=== PATIENT | female | born 1950 | race Caucasian/White ===

== ENCOUNTER 2018-05-26 12:33 | Emergency (ER) | payer MEDICARE ==
[2018-05-26] MEDS ORDERED: ONDANSETRON HCL IV 4 MG/2 ML VIAL IVP ONE (12:41)
[2018-05-26] MEDS ORDERED: HYDROMORPHONE HCL 2 MG/ML VIAL IVP ONE ×2 (12:41→14:58)
[2018-05-26] MEDS ORDERED: 0.9 % SODIUM CHLORIDE 1000ML 1,000 ML IV SCH (12:45)
--- NOTE | 2018-05-26 12:48 | Emergency Department Record ---
History of Present Illness - General Chief Complaint: Fall Injury Stated Complaint: FALL INJURY Time Seen by Provider: 05/26/18 12:41 Source: Patient, EMS Mode of Arrival: EMS Limitations: No limitations - History of Present Illness Initial Comments: 68 yo female presents to ED for evaluation of right shoulder and left knee/ lower leg pain symptoms immediately following a trip and fall at home. Patient reports that she tripped on a rug at home that resulted in her fall. Patient denies numbness, tingling, or weakness to the right hand distally or to the left foot distally. Patient denies use of anticoagulation medications, and denies injury to the head or neck. MD Complaint: Fall Onset/Timin -: Minutes(s) Fall From: Standing When Fall Occurred: Just prior to arrival Fall Witnessed: Yes, by family Place Fall Occurred: Home Loss of Consciousness: None Prolonged Down Time?: No Symptoms Prior to Fall: None Location - Extremities: Left: Knee, Lower Leg, Right: Shoulder Severity: Moderate Quality: Aching Associated Symptoms: Denies - [place] Coma Scale Eye Response: (4) Open spontaneously Motor Response: (6) Obeys commands Verbal Response: (5) Oriented [place] Total: 15 - Related Data Allergies Allergy/AdvReac Type Severity Reaction Status Date / Time venom-honey bee Allergy Severe ANAPHYLAXIS Verified 05/26/18 12:45 [bee venom (honey bee)] Penicillins Allergy Intermediate HIVES Verified 05/26/18 12:45 Sulfa (Sulfonamide Allergy Intermediate RASH Verified 05/26/18 12:45 Antibiotics) propoxyphene HCl AdvReac Intermediate ALTERED Verified 05/26/18 12:45 [From Darvon] MENTAL STATUS Review of Systems Constitutional: Denies: Chills, Fever, Malaise, Night sweats Eyes: Denies: Eye discharge, Eye pain ENT: Denies: Congestion, Ear pain, Epistaxis Respiratory: Denies: Cough, Dyspnea Cardiovascular: Denies: Chest pain, Dyspnea on exertion Endocrine: Denies: Fatigue, Heat or cold intolerance Gastrointestinal: Denies: Abdominal pain, Nausea, Vomiting Genitourinary: Denies: Incontinence, Retention Musculoskeletal: Reports: Arthralgia. Denies: Back pain, Gout, Joint swelling Skin: Denies: Bruising, Change in color Neurological: Denies: Confusion, Headache, Seizure Psychiatric: Denies: Anxiety Hematological/Lymphatic: Denies: Anemia, Blood Clots Physical Exam - General General Appearance: Alert, Oriented x3, Cooperative, Moderate distress Limitations: No limitations - Head Head exam: Atraumatic, Normocephalic, Normal inspection Head exam detail: negative: Abrasion, Contusion, Dominique's sign, General tenderness, Hematoma, Laceration - Eye Eye exam: Normal appearance. negative: Conjunctival injection, Periorbital swelling, Periorbital tenderness, Scleral icterus - ENT Ear exam: negative: Auricular hematoma, Auricular trauma Nasal Exam: negative: Active bleeding, Discharge, Dried blood, Foreign body Mouth exam: negative: Drooling, Laceration, Muffled voice, Tongue elevation - Neck Neck exam: Normal inspection. negative: Meningismus, Tenderness - Respiratory Respiratory exam: Normal lung sounds bilaterally. negative: Rales, Respiratory distress, Rhonchi, Stridor - Cardiovascular Cardiovascular Exam: Regular rate, Normal rhythm, Normal heart sounds Peripheral Pulses: 3+: Radial (R), Dorsalis Pedis (L) - GI/Abdominal GI/Abdominal exam: Soft. negative: Rebound, Rigid, Tenderness - Rectal Rectal exam: Deferred - exam: Deferred - Extremities Extremities exam: Tenderness, Other (TTP to the proximal right humerus on examination, no evidence for dislocation on examination, compartments of the upper arm and forearm are soft on exmaination, strong distal radial pulse. Patient also has TTP and STS over the left knee inferiorly, STS to the left lower leg, compartments are soft, and patient has a strong DPP.). negative: Calf tenderness, Pedal edema - Back Back exam: Denies: CVA tenderness (R), CVA tenderness (L) - Neurological Neurological exam: Alert, Oriented X3 - Psychiatric Psychiatric exam: Normal affect, Normal mood - Skin Skin exam: Normal color. negative: Abrasion Type of lesion: negative: abrasion Course - Reevaluation(s) Reevaluation #1: 05/26/18 12:48 Patient was seen and examined, analgesia ordered following examination. Reevaluation #2: 05/26/18 14:07 Right shoulder: No acute fracture or dislocation Left Knee: Lateral inter-articular tibial plateau fracture Per patient choice, will initiate transfer to [facility] for orthopedic consultation. Reevaluation #3: 05/26/18 14:37 Case was discussed with Olvin Brambila, and Ryne-will accept transfer for trauma/orthopedics evaluation. Disposition Disposition: Transfer Clinical Impression: Tibial plateau fracture, left Qualifiers: Encounter type: initial encounter Fracture type: closed Qualified Code(s): S82.142A - Displaced bicondylar fracture of left tibia, initial encounter for closed fracture Shoulder dislocation Qualifiers: Encounter type: initial encounter Laterality: right Qualified Code(s): S43.004A - Unspecified dislocation of right shoulder joint, initial encounter Disposition: Acute Care Hospital Transfer Transfer To: [facility] Reason For Transfer: Orthopedic consultation Accepting Physician: Abiel Time Discussed w/Accepting Physician: 14:37 Forms: Patient Portal Access Time of Disposition: 14:37 Quality - Quality Measures Quality Measures: N/A - Blood Pressure Screening Does Patient Have Any of the Following: Active Dx of HTN Blood Pressure Classification: Hypertensive Reading Systolic Measurement: 155 Diastolic Measurement: 77 Screening for High Blood Pressure: Patient Exclusion, Hx of HTN [[id number]]
--- NOTE | 2018-05-28 10:27 | RADIOLOGY REPORT ---
EXAM: LEFT KNEE, THREE VIEWS HISTORY: ANTERIOR KNEE PAIN BELOW PATELLA POST FALL. TECHNIQUE: AP, lateral and tunnel views of the left knee were obtained. Comparison: None. Encounter: Initial. FINDINGS: There is mild osteopenia. Best seen on the AP and tunnel views is a longitudinally oriented linear lucency appearing to extend from the central aspect of the lateral tibial plateau inferiorly to the proximal metadiaphyseal junction. This is suspicious for acute fracture. There is no articular surface step-off. There is a small to moderate sized joint effusion. There is stranding of Hoffa's fat as seen on the lateral view. Mild tricompartmental degenerative changes are present. There is atherosclerotic calcification of the proximal aspect of the popliteal artery. IMPRESSION: 1. ACUTE INTRAARTICULAR FRACTURE OF THE PROXIMAL TIBIA, DESCRIBED ABOVE ASSOCIATED WITH SMALL TO MODERATE SIZED JOINT EFFUSION/HEMARTHROSIS. 2. MILD TRICOMPARTMENTAL DEGENERATIVE CHANGES. JOB NUMBER: [id number] [facility]
--- NOTE | 2018-05-28 10:39 | RADIOLOGY REPORT ---
EXAM: RIGHT SHOULDER COMPLETE HISTORY: RIGHT SHOULDER PAIN POST TRIP AND FALL. TECHNIQUE: Internal and external humerus rotation AP views of the right shoulder were obtained as well as a scapular Y-view. Comparison: None. Encounter: Initial. FINDINGS: There is diffuse osteopenia. No acute fracture, dislocation, or destructive bone lesion is seen. There are mild osteoarthritic changes of the acromioclavicular and glenohumeral joints. No focal soft tissue abnormality. IMPRESSION: DIFFUSE OSTEOPENIA. NO ACUTE FRACTURE NOR DISLOCATION. MILD DEGENERATIVE CHANGES. JOB NUMBER: [id number] [facility]
== END 2018-05-26 15:20 | disposition short-term general hospital (02) ==
LOC: ER 12:33
DX: S82.142A Displaced bicondylar fracture of left tibia, initial encounter for closed fracture (principal); S43.004A Unspecified dislocation of right shoulder joint, initial encounter; I10 Essential (primary) hypertension; W01.198A Fall on same level from slipping, tripping and stumbling with subsequent striking against other object, initial encounter; Y92.009 Unspecified place in unspecified non-institutional (private) residence as the place of occurrence of the external cause
CPT/HCPCS: 99285 ×2; 96376; 96374; 96375; 73562; 73030; J2405; J1170; J7030

== ENCOUNTER 2018-05-29 14:11 | Inpatient (IN) | payer MEDICARE ==
[2018-05-29] MEDS ORDERED: LEVALBUTEROL TARTRATE INH PRN (16:25)
[2018-05-29] MEDS ORDERED: IPRATROPIUM BR 0.02% NEB (0.5MG) INH PRN (16:27)
[2018-05-29] MEDS: IPRATROPIUM BR 0.02% NEB (0.5MG) INH SCH ×2 (18:15→23:35)
[2018-05-29] MEDS: HYDROCODONE/APAP 5/325MG TABLET PO PRN (19:42)
[2018-05-29] MEDS: ATORVASTATIN 20 MG TABLET PO SCH ×2 (21:23→21:25)
[2018-05-29] MEDS: DOCUSATE SODIUM 100 MG CAPSULE PO SCH (21:23)
[2018-05-29] MEDS: CILOSTAZOL 100 MG TABLET PO SCH (22:56)
[2018-05-30] MEDS: HYDROCODONE/APAP 5/325MG TABLET PO PRN ×3 (04:48→22:00)
[2018-05-30] MEDS: LEVOTHYROXINE SOD 112 MCG TAB PO SCH (06:40)
[2018-05-30] MEDS: PANTOPRAZOLE SODIUM 40 MG TABLET PO SCH (06:40)
[2018-05-30] MEDS ORDERED: LEVOTHYROXINE SODIUM 175 MCG TABLET PO SCH (07:00)
[2018-05-30] MEDS: BREO (FLUTICASONE/VILANTEROL) 200MCG/25MCG INHALER INH SCH (09:19)
[2018-05-30] MEDS: ENOXAPARIN 40 MG/0.4 ML SYR SQ SCH (09:43)
[2018-05-30] MEDS: HYDROCHLOROTHIAZIDE 25 MG TABLET PO SCH (09:43)
[2018-05-30] MEDS: LISINOPRIL 20 MG TABLET PO SCH (09:44)
[2018-05-30] MEDS: MELOXICAM 7.5 MG TABLET PO SCH (09:44)
[2018-05-30] MEDS: CALCIUM CARB/VITAMIN D 500MG/200IU PO SCH (09:44)
[2018-05-30] MEDS: ASPIRIN 81 MG TABEC PO SCH (09:44)
[2018-05-30] MEDS: CHOLECALCIFEROL 1,000 UNIT TABLET PO SCH (09:44)
[2018-05-30] MEDS: DOCUSATE SODIUM 100 MG CAPSULE PO SCH ×2 (09:45→22:01)
[2018-05-30] MEDS ORDERED: FISH OIL 1200 MG PO SCH (10:00)
[2018-05-30] MEDS: IPRATROPIUM BR 0.02% NEB (0.5MG) INH SCH ×2 (10:40→15:24)
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
--- NOTE | 2018-05-30 11:53 | Swing Bed Certification/Recert ---
Initial Certification Due: 05/29/18 14 Day Re-Cert Due: 06/12/18 44 Day Re-Cert Due: 07/12/18 74 Day Re-Cert Due: 08/11/18 CERTIFICATION 3 CERTIFICATION OF PATIENT ADMISSION Required at time of admission. Due: 05/29/18 I certify that SNF services are required to be given on an inpatient basis because of the above named patient's need for assisted care on a continuing basis for the condition(s) for which he/she was receiving inpatient hospital services prior to his/her transfer to the SNF. The patient's current needs for skilled care includes: [physical therapy, occupational therapy, assistance with transfers, assistance with ADL's, oxygen supplementation, pain control] Dana Smith, N.P. 05/30/18
[2018-05-30] MEDS: IPRATROPIUM BROMIDE PUFF SCH ×2 (17:17→21:46)
[2018-05-30] MEDS ORDERED: LEVALBUTEROL TARTRATE INH SCH (18:00)
[2018-05-30] MEDS: XOPENEX PUFF SCH (21:46)
[2018-05-30] MEDS: ATORVASTATIN 20 MG TABLET PO SCH (22:00)
[2018-05-31] MEDS: HYDROCODONE/APAP 5/325MG TABLET PO PRN ×3 (03:53→21:24)
[2018-05-31 06:51] LABS: BASO % 0.2 % (0-6); EOS % 3.9 % (0-6); HEMATOCRIT 30.3 % (35.0-47.0); HEMOGLOBIN 9.4 gm/dl (11.6-16.0); LYMPH % 14.2 % (16-45); MEAN CELL VOLUME 92.7 fl (81-97); MEAN CORPUSCULAR HEMOGLOBIN 28.7 pg (27-33); MEAN PLATELET VOLUME 9.6 fl (7.4-10.4); MONO % 9.7 % (0-9); PLATELET COUNT 243 K/uL (130-400); RED BLOOD COUNT 3.27 M/uL (3.80-5.40); RED CELL DISTRIBUTION WIDTH 12.2 % (11.5-14.5)
[2018-05-31 07:10] LABS: BLOOD UREA NITROGEN 26 mg/dL (8-23); CREATININE 0.9 mg/dL (0.5-0.9); EST GLOMERULAR FILTRATION RATE > 60 mL/min; GLUCOSE,RANDOM 103 mg/dL (74-109)
[2018-05-31] MEDS: LEVOTHYROXINE SOD 112 MCG TAB PO SCH (07:35)
[2018-05-31] MEDS: PANTOPRAZOLE SODIUM 40 MG TABLET PO SCH (07:35)
[2018-05-31] MEDS ORDERED: POLYETHYLENE GLY 17 GM PACKET PO PRN (09:21)
[2018-05-31] MEDS: ASPIRIN 81 MG TABEC PO SCH (09:34)
[2018-05-31] MEDS: BREO (FLUTICASONE/VILANTEROL) 200MCG/25MCG INHALER INH SCH (09:34)
[2018-05-31] MEDS: HYDROCHLOROTHIAZIDE 25 MG TABLET PO SCH (09:34)
[2018-05-31] MEDS: ACETAMINOPHEN 500 MG TABLET PO PRN ×2 (09:34→20:07)
[2018-05-31] MEDS: ENOXAPARIN 40 MG/0.4 ML SYR SQ SCH (09:34)
[2018-05-31] MEDS: CALCIUM CARB/VITAMIN D 500MG/200IU PO SCH ×2 (09:34→21:21)
[2018-05-31] MEDS: CHOLECALCIFEROL 1,000 UNIT TABLET PO SCH (09:34)
[2018-05-31] MEDS: MELOXICAM 7.5 MG TABLET PO SCH (09:35)
[2018-05-31] MEDS: DOCUSATE SODIUM 100 MG CAPSULE PO SCH ×2 (09:35→21:21)
[2018-05-31] MEDS: LISINOPRIL 20 MG TABLET PO SCH (09:36)
[2018-05-31] MEDS: IPRATROPIUM BROMIDE PUFF SCH ×4 (09:41→21:49)
[2018-05-31] MEDS: XOPENEX PUFF SCH ×4 (09:41→21:49)
[2018-05-31] MEDS ORDERED: CYCLOBENZAPRINE 10MG TABLET PO PRN (10:30)
[2018-05-31] MEDS: CILOSTAZOL 100 MG TABLET PO SCH ×2 (10:39→21:18)
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
[2018-05-31] MEDS: ATORVASTATIN 20 MG TABLET PO SCH (20:00)
[2018-06-01] MEDS: HYDROCODONE/APAP 5/325MG TABLET PO PRN ×2 (06:09→19:05)
[2018-06-01] MEDS: PANTOPRAZOLE SODIUM 40 MG TABLET PO SCH (06:09)
[2018-06-01] MEDS: LEVOTHYROXINE SOD 112 MCG TAB PO SCH (06:09)
[2018-06-01] MEDS: XOPENEX PUFF SCH ×5 (06:15→21:50)
[2018-06-01] MEDS: IPRATROPIUM BROMIDE PUFF SCH ×5 (06:15→21:50)
[2018-06-01] MEDS: DOCUSATE SODIUM 100 MG CAPSULE PO SCH ×2 (10:14→21:19)
[2018-06-01] MEDS: CALCIUM CARB/VITAMIN D 500MG/200IU PO SCH ×2 (10:14→21:19)
[2018-06-01] MEDS: ASPIRIN 81 MG TABEC PO SCH (10:14)
[2018-06-01] MEDS: ENOXAPARIN 40 MG/0.4 ML SYR SQ SCH (10:15)
[2018-06-01] MEDS: HYDROCHLOROTHIAZIDE 25 MG TABLET PO SCH (10:15)
[2018-06-01] MEDS: CHOLECALCIFEROL 1,000 UNIT TABLET PO SCH (10:15)
[2018-06-01] MEDS: MELOXICAM 7.5 MG TABLET PO SCH (10:15)
[2018-06-01] MEDS: CILOSTAZOL 100 MG TABLET PO SCH ×2 (10:16→21:19)
[2018-06-01] MEDS: LISINOPRIL 20 MG TABLET PO SCH (10:16)
[2018-06-01] MEDS: ACETAMINOPHEN 500 MG TABLET PO PRN ×2 (10:16→15:40)
--- NOTE | 2018-06-01 11:01 | Occupational Therapy Tx Note ---
Occupational Therapy Tx Note - Treatment Note Tolerated: Good Total Time Spent With Patient: 65 (ADL) Occupational Therapy Treatment Note: Detail (S: Pt in bed, ready for OT. O: Supine to sit Indly with HOB raised and use of side rail. Sit to stand x 2 for pivot transfer using jose walker with cues for foot placement, to wheelchair with CG assist. Pt educated and able to propel self to toilet Indly. Pt pivot transferred to commode with use of grab bar and CG assist. Pt able to stand and pull briefs down with CG assist for balance. Pt completed toileting Indly including hygiene. Pt stood and pulled up briefs with mod assist for right side. Pt transferred to wheelchair with CG assist. Pt donned shorts over feet with modified technique and verbal cues as well as mod assist to pull shorts over right hip. Pt propelled to sink and completed upper body sponge bathing, oral hygiene, brushing hair, applying make up and shaving using modified one handed technique with right hand as an assist. She doffed sling with min assist and donned shirt with cues for modified technique. Pt propelled wheelchair to room and was positioned for breakfast. A: Ind with grooming/ hygiene and upper body bathing/dressing with modified technique. CG assist for pivot transfers. Improved Ind with wheelchair mobility. Assist needed for LE dressing in standing.) Occupational Therapy Problem List: Detail (1. Decreased Ind with dressing tasks. 2. Decreased Ind with showering. 3. Decreased Ind with functional mobility needed for safe and Ind self cares. 4. Decreased Ind with right UE AROM exercises needed to maintain motion in unaffected joints.) Occupational Therapy Goals: 1. Pt will be Ind with total body dressing using modified techniques including LE brace and UE sling. 2. Pt will be Ind with total body showering in sitting. 3. Pt will be Ind with bed mobility and transfers needed for self care activities. 4. Pt will be Ind with right elbow , wrist and hand AROM exercises. Prognosis: Good Occupational Therapy Plan: OT 2-4 days per week to address self cares, functional mobility and UE function to allow safe and Ind return home.
--- NOTE | 2018-06-01 15:40 | Physical Therapy Tx Note ---
Physical Therapy Tx Note - Treatment Note Tolerated: Good Total Time Spent With Patient: 25 Physical Therapy Tx Note: Detail (The patient was up in wheelchair when PT arrived. The patient was without sling and required minimal to moderate assist to don sling. The patient propelled wheelchair a distance of 40 feet x 1 using L UE and R LE with occasional verbal cues for technique. The patient transfered from wheelchair to bed NWB on L LE and NWB on R UE independently. The patient was independent with sit to supine. The patient then completed the following L LE exercises: ankle pumps, hip abduction and SLR x 10 reps. The patient's O 2 sat. level was measured throughout session and remained 91 and above.) Physical Therapy Problem List: Detail (1) Assistance with bed mobility and transfers 2) Pain in L LE and immobilization R UE and L LE 3) Nonambulatory) Physical Therapy Goals: 1) The patient will be independent with all bed mobility. 2) The patient will be independent with all transfers, maintaining NWB status. 3) The patient will be independent with wheelchair mobility Physical Therapy Plan: PT 1-2 times a day M-F for bed mobility, transfers, wheelchair mobility, AROM L ankle and hip as allowed by immobilizer.
[2018-06-01] MEDS: ATORVASTATIN 20 MG TABLET PO SCH (21:19)
[2018-06-02] MEDS: ACETAMINOPHEN 500 MG TABLET PO PRN ×3 (02:51→18:22)
[2018-06-02] MEDS: IPRATROPIUM BROMIDE PUFF SCH ×4 (05:57→20:33)
[2018-06-02] MEDS: XOPENEX PUFF SCH ×5 (05:58→22:00)
[2018-06-02] MEDS: HYDROCODONE/APAP 5/325MG TABLET PO PRN ×3 (06:35→22:09)
[2018-06-02] MEDS: PANTOPRAZOLE SODIUM 40 MG TABLET PO SCH (06:35)
[2018-06-02] MEDS: LEVOTHYROXINE SOD 112 MCG TAB PO SCH (06:35)
[2018-06-02] MEDS ORDERED: ALENDRONATE 70MG TABLET PO SCH (07:00)
--- NOTE | 2018-06-02 07:24 | RADIOLOGY REPORT ---
EXAM: CHEST, TWO VIEWS HISTORY: DIFFICULTY IN BREATHING. TECHNIQUE: Frontal and lateral views of the chest were performed. Comparison: 03/12/18. FINDINGS: The heart size is normal. There is mild pulmonary vascular congestion. There is linear atelectasis in both lung matta. No pleural effusion. The osseous structures are normal. IMPRESSION: MILD PULMONARY VASCULAR CONGESTION. LINEAR ATELECTASIS IN BOTH LOWER LUNG MATTA. JOB NUMBER: [id number] [facility]
[2018-06-02] MEDS: CALCIUM CARB/VITAMIN D 500MG/200IU PO SCH ×2 (10:18→22:08)
[2018-06-02] MEDS: HYDROCHLOROTHIAZIDE 25 MG TABLET PO SCH (10:19)
[2018-06-02] MEDS: ENOXAPARIN 40 MG/0.4 ML SYR SQ SCH (10:19)
[2018-06-02] MEDS: ASPIRIN 81 MG TABEC PO SCH (10:19)
[2018-06-02] MEDS: MELOXICAM 7.5 MG TABLET PO SCH (10:19)
[2018-06-02] MEDS: LISINOPRIL 20 MG TABLET PO SCH (10:19)
[2018-06-02] MEDS: DOCUSATE SODIUM 100 MG CAPSULE PO SCH ×2 (10:19→22:08)
[2018-06-02] MEDS: CHOLECALCIFEROL 1,000 UNIT TABLET PO SCH (10:21)
[2018-06-02] MEDS: CILOSTAZOL 100 MG TABLET PO SCH ×2 (10:22→22:00)
--- NOTE | 2018-06-02 10:56 | Occupational Therapy Tx Note ---
Occupational Therapy Tx Note - Treatment Note Tolerated: Good Total Time Spent With Patient: 60 (ADL) Occupational Therapy Treatment Note: Detail (S: Pt resting in bed, ready for shower. O: Supine to sit Indly with HOB raised. Sit to stand and pivot transferred to wheelchair with SBA. Pt propelled self to commode/toilet and completed pivot transfer with SBA and use of grab bar. She was able to pull briefs down and complete toileting Indly. Pt transferred to wheelchair, propelled to shower, transferred to commode seat in shower with SBA using multiple grab bars. Pt doffed shirt Indly, required mod assist to doff LE brace and slipper socks. Pt completed showering in sitting with hand held shower Indly with exception of left lower leg and foot. Pt dried self Indly with assist for left foot/lower leg. Pt donned t-shirt Indly, briefs with min assist to start over feet and to car repairer pullman hips, shorts with assist to car repairer pullman hips and slipper socks with max assist. Pt transferred to wheelchair with SBA and propelled self to sink to complete oral hygiene Indly. Pt donned left LE brace with max assist. She requested to keep UE sling off while eating breakfast. Pt left up in chair with call light in reach. A: Pt requires assist for LE ADLs due to left knee immobilization, will pursue adaptive equipment needs. Mobility continues to improve with transfers and wheelchair.) Occupational Therapy Problem List: Detail (1. Decreased Ind with dressing tasks. 2. Decreased Ind with showering. 3. Decreased Ind with functional mobility needed for safe and Ind self cares. 4. Decreased Ind with right UE AROM exercises needed to maintain motion in unaffected joints.) Occupational Therapy Goals: 1. Pt will be Ind with total body dressing using modified techniques including LE brace and UE sling. 2. Pt will be Ind with total body showering in sitting. 3. Pt will be Ind with bed mobility and transfers needed for self care activities. 4. Pt will be Ind with right elbow , wrist and hand AROM exercises. Prognosis: Good Occupational Therapy Plan: OT 2-4 days per week to address self cares, functional mobility and UE function to allow safe and Ind return home.
--- NOTE | 2018-06-02 15:42 | Physical Therapy Tx Note ---
Physical Therapy Tx Note - Treatment Note Tolerated: Good Total Time Spent With Patient: 30 Physical Therapy Tx Note: Detail (The patient was in bed when PT arrived. The patient transferred from bed to wheelchair independently NWB on RUE and L LE with set up of wheelchair. The patient propelled wheelchair a total of 150 feet with 2 rest periods on tile and carpeted surface. The patient transferred from wheelchair to bed independently including wheelchair set up. The patient completed LE strengthening exercises including : SLR, hip abduction supine, gluteal sets, hip adductor squeezes, and ankle pumps all x 10 reps.) Physical Therapy Problem List: Detail (1) Assistance with bed mobility and transfers 2) Pain in L LE and immobilization R UE and L LE 3) Nonambulatory) Physical Therapy Goals: 1) The patient will be independent with all bed mobility. 2) The patient will be independent with all transfers, maintaining NWB status. 3) The patient will be independent with wheelchair mobility Physical Therapy Plan: PT 1-2 times a day M-F for bed mobility, transfers, wheelchair mobility, AROM L ankle and hip as allowed by immobilizer.
[2018-06-02] MEDS: ATORVASTATIN 20 MG TABLET PO SCH (20:36)
[2018-06-02] MEDS: BACITRACIN 14 GM TUBE TOP SCH (22:12)
[2018-06-02] MEDS: HYDROCORTISONE 1% CREAM 28.35 GM TUBE TOP SCH (22:12)
[2018-06-03] MEDS: ACETAMINOPHEN 500 MG TABLET PO PRN ×3 (06:13→23:30)
[2018-06-03] MEDS: PANTOPRAZOLE SODIUM 40 MG TABLET PO SCH (06:13)
[2018-06-03] MEDS: LEVOTHYROXINE SOD 112 MCG TAB PO SCH (06:13)
[2018-06-03] MEDS: IPRATROPIUM BROMIDE PUFF SCH ×6 (06:36→22:00)
[2018-06-03] MEDS: XOPENEX PUFF SCH ×5 (07:05→22:00)
[2018-06-03] MEDS ORDERED: ZINC OXIDE 28.35 GM TUBE TOP ONE (09:43)
[2018-06-03] MEDS: ENOXAPARIN 40 MG/0.4 ML SYR SQ SCH (09:51)
[2018-06-03] MEDS: BACITRACIN 14 GM TUBE TOP SCH ×2 (09:52→21:48)
[2018-06-03] MEDS: CHOLECALCIFEROL 1,000 UNIT TABLET PO SCH (09:52)
[2018-06-03] MEDS: MELOXICAM 7.5 MG TABLET PO SCH (09:52)
[2018-06-03] MEDS: CALCIUM CARB/VITAMIN D 500MG/200IU PO SCH ×2 (09:52→21:46)
[2018-06-03] MEDS: CILOSTAZOL 100 MG TABLET PO SCH ×2 (09:52→21:48)
[2018-06-03] MEDS: ASPIRIN 81 MG TABEC PO SCH (09:52)
[2018-06-03] MEDS: LISINOPRIL 20 MG TABLET PO SCH (09:52)
[2018-06-03] MEDS: HYDROCORTISONE 1% CREAM 28.35 GM TUBE TOP SCH ×2 (09:52→21:48)
[2018-06-03] MEDS: HYDROCHLOROTHIAZIDE 25 MG TABLET PO SCH (09:52)
[2018-06-03] MEDS: DOCUSATE SODIUM 100 MG CAPSULE PO SCH ×2 (09:52→21:45)
[2018-06-03] MEDS: HYDROCODONE/APAP 5/325MG TABLET PO PRN ×3 (11:08→23:30)
[2018-06-03] MEDS: ATORVASTATIN 20 MG TABLET PO SCH (21:45)
[2018-06-04] MEDS: IPRATROPIUM BROMIDE PUFF SCH ×4 (06:13→21:22)
[2018-06-04] MEDS: XOPENEX PUFF SCH ×4 (06:14→21:22)
[2018-06-04] MEDS: LEVOTHYROXINE SOD 112 MCG TAB PO SCH (06:43)
[2018-06-04] MEDS: PANTOPRAZOLE SODIUM 40 MG TABLET PO SCH (06:44)
[2018-06-04] MEDS: ACETAMINOPHEN 500 MG TABLET PO PRN ×3 (06:44→21:13)
[2018-06-04] MEDS: HYDROCODONE/APAP 5/325MG TABLET PO PRN ×2 (06:44→22:46)
[2018-06-04] MEDS: DOCUSATE SODIUM 100 MG CAPSULE PO SCH ×2 (09:22→21:15)
[2018-06-04] MEDS: CHOLECALCIFEROL 1,000 UNIT TABLET PO SCH (09:22)
[2018-06-04] MEDS: LISINOPRIL 20 MG TABLET PO SCH (09:22)
[2018-06-04] MEDS: ENOXAPARIN 40 MG/0.4 ML SYR SQ SCH (09:22)
[2018-06-04] MEDS: HYDROCHLOROTHIAZIDE 25 MG TABLET PO SCH (09:23)
[2018-06-04] MEDS: MELOXICAM 7.5 MG TABLET PO SCH (09:23)
[2018-06-04] MEDS: CALCIUM CARB/VITAMIN D 500MG/200IU PO SCH ×2 (09:24→21:15)
[2018-06-04] MEDS: ASPIRIN 81 MG TABEC PO SCH (09:24)
[2018-06-04] MEDS: BACITRACIN 14 GM TUBE TOP SCH ×2 (09:27→21:16)
[2018-06-04] MEDS: HYDROCORTISONE 1% CREAM 28.35 GM TUBE TOP SCH ×2 (09:27→21:16)
[2018-06-04] MEDS: CILOSTAZOL 100 MG TABLET PO SCH ×2 (09:27→21:16)
--- NOTE | 2018-06-04 11:12 | Physical Therapy Tx Note ---
Physical Therapy Tx Note - Treatment Note Tolerated: Fair Total Time Spent With Patient: 25 Physical Therapy Tx Note: Detail (The patient was in wheelchair and had just finished cleaning up. The patient completed knee flexion in the wheelchair x 5 reps with knee brace unlocked. The patient then transferred independently from wheelchair to bed using 360 degree turn technique. The patient was able to set up wheelchair independently. The patient was independent with sit to supine and scooting up in bed with use of railing. The patient completed SLR x 3 reps and ankle pumps. The patient refused to complete further exercises due to fatigue. Discussed with patient need to complete other types of transfers besides 360 type secondary to inability to complete that technique with car transfers. Will bring patient a home exercise program this pm.) Physical Therapy Problem List: Detail (1) Assistance with bed mobility and transfers 2) Pain in L LE and immobilization R UE and L LE 3) Nonambulatory) Physical Therapy Goals: 1) The patient will be independent with all bed mobility. 2) The patient will be independent with all transfers, maintaining NWB status. 3) The patient will be independent with wheelchair mobility Physical Therapy Plan: PT 1-2 times a day M-F for bed mobility, transfers, wheelchair mobility, AROM L ankle and hip as allowed by immobilizer.
--- NOTE | 2018-06-04 13:54 | Occupational Therapy Tx Note ---
Occupational Therapy Tx Note - Treatment Note Tolerated: Fair Total Time Spent With Patient: 35 (ADL) Occupational Therapy Treatment Note: Detail (S: Pt resting in bed, fatigued from morning activities. O: Reviewed home set up, pt reports she has a very small shower without room for any type of chair/bench therefore she will only be able to complete sponge bathing. She is not able to wash hair in sink due to difficulty bending forward. Discussed option of going to a family members house or hair or beauty salon assistant, she states she has no money and her family's homes have steps at the entrance. Attempted doffing/donning of LE brace, pt was able to unhook brace with significant difficulty to reach bottom hook while long sitting in bed. Repositioned brace, pt unable to adjust tension and re-hook brace due to snug fit. Reviewed ADL equipment including sole stapler welt, sock aid, shoe horn and hospital bed. Will continue to educate pt on options. A: Pt unable to don LE brace Indly, requires assist for LE dressing) Occupational Therapy Problem List: Detail (1. Decreased Ind with dressing tasks. 2. Decreased Ind with showering. 3. Decreased Ind with functional mobility needed for safe and Ind self cares. 4. Decreased Ind with right UE AROM exercises needed to maintain motion in unaffected joints.) Occupational Therapy Goals: 1. Pt will be Ind with total body dressing using modified techniques including LE brace and UE sling. 2. Pt will be Ind with total body showering in sitting. 3. Pt will be Ind with bed mobility and transfers needed for self care activities. 4. Pt will be Ind with right elbow , wrist and hand AROM exercises. Prognosis: Good Occupational Therapy Plan: OT 2-4 days per week to address self cares, functional mobility and UE function to allow safe and Ind return home.
--- NOTE | 2018-06-04 14:22 | Physical Therapy Tx Note ---
Physical Therapy Tx Note - Treatment Note Physical Therapy Tx Note: Detail (The patient was not seen for PT treatments on 06/03/18 secondary to patient went to orthopedic physician appt.) Physical Therapy Problem List: Detail (1) Assistance with bed mobility and transfers 2) Pain in L LE and immobilization R UE and L LE 3) Nonambulatory) Physical Therapy Goals: 1) The patient will be independent with all bed mobility. 2) The patient will be independent with all transfers, maintaining NWB status. 3) The patient will be independent with wheelchair mobility Physical Therapy Plan: PT 1-2 times a day M-F for bed mobility, transfers, wheelchair mobility, AROM L ankle and hip as allowed by immobilizer.
[2018-06-04] MEDS: ATORVASTATIN 20 MG TABLET PO SCH (21:15)
[2018-06-04] MEDS: CYCLOBENZAPRINE 10MG TABLET PO PRN (22:48)
[2018-06-05] MEDS: IPRATROPIUM BROMIDE PUFF SCH ×4 (05:47→23:13)
[2018-06-05] MEDS: XOPENEX PUFF SCH ×4 (05:49→23:13)
[2018-06-05] MEDS: HYDROCODONE/APAP 5/325MG TABLET PO PRN ×3 (06:01→23:12)
[2018-06-05] MEDS: PANTOPRAZOLE SODIUM 40 MG TABLET PO SCH (06:02)
[2018-06-05] MEDS: LEVOTHYROXINE SOD 112 MCG TAB PO SCH (06:02)
[2018-06-05] MEDS: ENOXAPARIN 40 MG/0.4 ML SYR SQ SCH (09:58)
[2018-06-05] MEDS: CHOLECALCIFEROL 1,000 UNIT TABLET PO SCH (09:58)
[2018-06-05] MEDS: CALCIUM CARB/VITAMIN D 500MG/200IU PO SCH ×2 (09:59→21:23)
[2018-06-05] MEDS: DOCUSATE SODIUM 100 MG CAPSULE PO SCH ×2 (09:59→21:23)
[2018-06-05] MEDS: LISINOPRIL 20 MG TABLET PO SCH (09:59)
[2018-06-05] MEDS: ASPIRIN 81 MG TABEC PO SCH (09:59)
[2018-06-05] MEDS: MELOXICAM 7.5 MG TABLET PO SCH (09:59)
[2018-06-05] MEDS: HYDROCHLOROTHIAZIDE 25 MG TABLET PO SCH (09:59)
[2018-06-05] MEDS: HYDROCORTISONE 1% CREAM 28.35 GM TUBE TOP SCH ×2 (10:00→21:26)
[2018-06-05] MEDS: BACITRACIN 14 GM TUBE TOP SCH ×2 (10:00→21:26)
[2018-06-05] MEDS: CILOSTAZOL 100 MG TABLET PO SCH ×2 (10:00→21:25)
[2018-06-05] MEDS: ACETAMINOPHEN 500 MG TABLET PO PRN ×2 (10:02→18:32)
[2018-06-05] MEDS: ATORVASTATIN 20 MG TABLET PO SCH (19:56)
[2018-06-05] MEDS: CYCLOBENZAPRINE 10MG TABLET PO PRN (23:12)
[2018-06-06] MEDS: HYDROCODONE/APAP 5/325MG TABLET PO PRN (06:03)
[2018-06-06] MEDS: PANTOPRAZOLE SODIUM 40 MG TABLET PO SCH (06:03)
[2018-06-06] MEDS: LEVOTHYROXINE SOD 112 MCG TAB PO SCH (06:03)
[2018-06-06] MEDS: XOPENEX PUFF SCH ×5 (06:06→22:01)
[2018-06-06] MEDS: IPRATROPIUM BROMIDE PUFF SCH ×3 (06:06→13:35)
[2018-06-06] MEDS ORDERED: ZINC OXIDE 28.35 GM TUBE TOP ONE (10:07)
[2018-06-06] MEDS: CHOLECALCIFEROL 1,000 UNIT TABLET PO SCH (10:26)
[2018-06-06] MEDS: DOCUSATE SODIUM 100 MG CAPSULE PO SCH ×2 (10:26→22:30)
[2018-06-06] MEDS: CALCIUM CARB/VITAMIN D 500MG/200IU PO SCH ×2 (10:26→22:32)
[2018-06-06] MEDS: HYDROCODONE/APAP 7.5/325MG TABLET PO PRN ×3 (10:26→22:30)
[2018-06-06] MEDS: MELOXICAM 7.5 MG TABLET PO SCH (10:26)
[2018-06-06] MEDS: HYDROCHLOROTHIAZIDE 25 MG TABLET PO SCH (10:26)
[2018-06-06] MEDS: ENOXAPARIN 40 MG/0.4 ML SYR SQ SCH (10:27)
[2018-06-06] MEDS: LISINOPRIL 20 MG TABLET PO SCH (10:27)
[2018-06-06] MEDS: ASPIRIN 81 MG TABEC PO SCH (10:27)
[2018-06-06] MEDS: BACITRACIN 14 GM TUBE TOP SCH ×2 (10:27→22:37)
[2018-06-06] MEDS: HYDROCORTISONE 1% CREAM 28.35 GM TUBE TOP SCH ×2 (10:27→22:35)
[2018-06-06] MEDS: CILOSTAZOL 100 MG TABLET PO SCH ×2 (10:28→22:32)
[2018-06-06] MEDS: PATIENT OWN MED: PUFF SCH ×2 (17:22→22:00)
[2018-06-06] MEDS: ATORVASTATIN 20 MG TABLET PO SCH (20:18)
[2018-06-06] MEDS: ACETAMINOPHEN 500 MG TABLET PO PRN (20:18)
[2018-06-06] MEDS: CYCLOBENZAPRINE 10MG TABLET PO PRN (22:31)
[2018-06-07] MEDS: XOPENEX PUFF SCH ×4 (06:00→18:23)
[2018-06-07] MEDS: PATIENT OWN MED: PUFF SCH (06:00)
[2018-06-07] MEDS: PANTOPRAZOLE SODIUM 40 MG TABLET PO SCH (06:17)
[2018-06-07] MEDS: LEVOTHYROXINE SOD 112 MCG TAB PO SCH (06:17)
[2018-06-07] MEDS: HYDROCODONE/APAP 7.5/325MG TABLET PO PRN ×3 (06:23→21:58)
[2018-06-07] MEDS: BACITRACIN 14 GM TUBE TOP SCH ×2 (09:28→21:58)
[2018-06-07] MEDS: CALCIUM CARB/VITAMIN D 500MG/200IU PO SCH ×2 (09:28→21:57)
[2018-06-07] MEDS: DOCUSATE SODIUM 100 MG CAPSULE PO SCH ×2 (09:29→21:57)
[2018-06-07] MEDS: HYDROCHLOROTHIAZIDE 25 MG TABLET PO SCH (09:29)
[2018-06-07] MEDS: ASPIRIN 81 MG TABEC PO SCH (09:29)
[2018-06-07] MEDS: HYDROCORTISONE 1% CREAM 28.35 GM TUBE TOP SCH ×2 (09:30→21:58)
[2018-06-07] MEDS: ENOXAPARIN 40 MG/0.4 ML SYR SQ SCH (09:30)
[2018-06-07] MEDS: MELOXICAM 7.5 MG TABLET PO SCH (09:30)
[2018-06-07] MEDS: CILOSTAZOL 100 MG TABLET PO SCH ×2 (09:31→21:58)
[2018-06-07] MEDS: CHOLECALCIFEROL 1,000 UNIT TABLET PO SCH (09:32)
[2018-06-07] MEDS: LISINOPRIL 20 MG TABLET PO SCH (09:33)
[2018-06-07] MEDS: ACETAMINOPHEN 500 MG TABLET PO PRN ×2 (09:34→19:41)
--- NOTE | 2018-06-07 09:57 | Occupational Therapy Tx Note ---
Occupational Therapy Tx Note - Treatment Note Tolerated: Good Total Time Spent With Patient: 45 (ADL) Occupational Therapy Treatment Note: Detail (S: Pt supine in bed, ready to get up. O: Supine to sit with bed flat and no use of grab bars to simulate home set up. Pt completed pivot transfer Indly with assist to set up wheelchair in proper location. Pt propelled self to sink and completed oral hygiene, combing hair, doffing sling and PJ top, upper body bathing and donning t-shirt Indly. Pt able to stand at sink to doff briefs enough to perform ron-care, she was able to wash ron area and pull briefs back up with rest break. Pt uses right hand to steady self on sink while washing self with Left UE. Educated pt re: non weight bearing status on right UE, she verbalizes understanding. Pt able to don shorts with use of form maker and don UE sling. Pt able to doff slipper sock and don right slip on shoe Indly. A: Pt is Ind with partial body sponge bathing and dressing using adaptive equipment, she is Ind with sling don/ doffing but will require cont. work on LE brace. She is Ind with transfers and wheelchair mobility for short distances.) Occupational Therapy Problem List: Detail (1. Decreased Ind with dressing tasks. 2. Decreased Ind with showering. 3. Decreased Ind with functional mobility needed for safe and Ind self cares. 4. Decreased Ind with right UE AROM exercises needed to maintain motion in unaffected joints.) Occupational Therapy Goals: 1. Pt will be Ind with total body dressing using modified techniques including LE brace and UE sling. 2. Pt will be Ind with total body showering in sitting. 3. Pt will be Ind with bed mobility and transfers needed for self care activities. 4. Pt will be Ind with right elbow , wrist and hand AROM exercises. Prognosis: Good Occupational Therapy Plan: OT 2-4 days per week to address self cares, functional mobility and UE function to allow safe and Ind return home.
[2018-06-07] MEDS: IPRATROPIUM BR 0.02% NEB (0.5MG) INH SCH ×3 (10:38→22:00)
--- NOTE | 2018-06-07 14:46 | Physical Therapy Tx Note ---
Physical Therapy Tx Note - Treatment Note Tolerated: Good Total Time Spent With Patient: 30 Physical Therapy Tx Note: Detail (The patient was up in wheelchair when PT arrived. Swing bed case work aide was present for initial portion of PT treatment. While in chair with leg rest elevated minimally the patient was able to don and doff [place] knee brace independently. The patient completed seated heel slide x 5 reps to aprox. 60 degrees.The patient then transferred to standard wheelchair from current one. The patient then transferred to bed independently from wheelchair, following NWB precautions and completed sit to supine independently. The patient was left in bed with call light within reach. Wheelchair measurements were given to Swing Bed Construction And Maintenance Inspector.) Physical Therapy Problem List: Detail (1) Assistance with bed mobility and transfers 2) Pain in L LE and immobilization R UE and L LE 3) Nonambulatory) Physical Therapy Goals: 1) The patient will be independent with all bed mobility. 2) The patient will be independent with all transfers, maintaining NWB status. 3) The patient will be independent with wheelchair mobility Physical Therapy Plan: PT 1-2 times a day M-F for bed mobility, transfers, wheelchair mobility, AROM L ankle and hip as allowed by immobilizer.
[2018-06-07] MEDS: CYCLOBENZAPRINE 10MG TABLET PO PRN (21:57)
[2018-06-07] MEDS: ATORVASTATIN 20 MG TABLET PO SCH (21:57)
[2018-06-08] MEDS: HYDROCODONE/APAP 7.5/325MG TABLET PO PRN ×4 (05:50→23:52)
[2018-06-08] MEDS: XOPENEX PUFF SCH ×6 (06:18→21:56)
[2018-06-08] MEDS: IPRATROPIUM BR 0.02% NEB (0.5MG) INH SCH (06:20)
[2018-06-08] MEDS: LEVOTHYROXINE SOD 112 MCG TAB PO SCH (06:26)
[2018-06-08] MEDS: PANTOPRAZOLE SODIUM 40 MG TABLET PO SCH (06:26)
[2018-06-08] MEDS: MELOXICAM 7.5 MG TABLET PO SCH ×2 (06:26→12:44)
[2018-06-08] MEDS: LISINOPRIL 20 MG TABLET PO SCH ×2 (06:27→12:46)
[2018-06-08] MEDS: CILOSTAZOL 100 MG TABLET PO SCH ×3 (06:29→21:57)
--- NOTE | 2018-06-08 09:30 | Physical Therapy Tx Note ---
Physical Therapy Tx Note - Treatment Note Physical Therapy Tx Note: Detail (The patient will not be seen by PT this am due to orthopedic physician and MRI appts. Will check in later this pm with patient.) Physical Therapy Problem List: Detail (1) Assistance with bed mobility and transfers 2) Pain in L LE and immobilization R UE and L LE 3) Nonambulatory) Physical Therapy Goals: 1) The patient will be independent with all bed mobility. 2) The patient will be independent with all transfers, maintaining NWB status. 3) The patient will be independent with wheelchair mobility Physical Therapy Plan: PT 1-2 times a day M-F for bed mobility, transfers, wheelchair mobility, AROM L ankle and hip as allowed by immobilizer.
[2018-06-08] MEDS ORDERED: IPRATROPIUM INH SCH (11:00)
[2018-06-08] MEDS: IPRATROPIUM INH SCH ×2 (17:36→21:56)
[2018-06-08] MEDS: HYDROCORTISONE 1% CREAM 28.35 GM TUBE TOP SCH ×2 (18:34→21:59)
[2018-06-08] MEDS: ENOXAPARIN 40 MG/0.4 ML SYR SQ SCH (18:34)
[2018-06-08] MEDS: CHOLECALCIFEROL 1,000 UNIT TABLET PO SCH (18:34)
[2018-06-08] MEDS: HYDROCHLOROTHIAZIDE 25 MG TABLET PO SCH (18:35)
[2018-06-08] MEDS: DOCUSATE SODIUM 100 MG CAPSULE PO SCH ×2 (18:35→21:54)
[2018-06-08] MEDS: ASPIRIN 81 MG TABEC PO SCH (18:35)
[2018-06-08] MEDS: ATORVASTATIN 20 MG TABLET PO SCH (20:18)
[2018-06-08] MEDS: CALCIUM CARB/VITAMIN D 500MG/200IU PO SCH ×2 (21:48→21:57)
[2018-06-08] MEDS: BACITRACIN 14 GM TUBE TOP SCH ×2 (21:48→21:59)
[2018-06-08] MEDS: CYCLOBENZAPRINE 10MG TABLET PO PRN (23:52)
[2018-06-09] MEDS: XOPENEX PUFF SCH ×5 (06:18→22:21)
[2018-06-09] MEDS: PANTOPRAZOLE SODIUM 40 MG TABLET PO SCH (06:18)
[2018-06-09] MEDS: IPRATROPIUM INH SCH ×5 (06:18→22:21)
[2018-06-09] MEDS: HYDROCODONE/APAP 7.5/325MG TABLET PO PRN ×4 (06:18→22:08)
[2018-06-09] MEDS: LEVOTHYROXINE SOD 112 MCG TAB PO SCH (06:20)
[2018-06-09] MEDS: HYDROCHLOROTHIAZIDE 25 MG TABLET PO SCH (09:27)
[2018-06-09] MEDS: DOCUSATE SODIUM 100 MG CAPSULE PO SCH ×2 (09:27→22:08)
[2018-06-09] MEDS: LISINOPRIL 20 MG TABLET PO SCH (09:27)
[2018-06-09] MEDS: HYDROCORTISONE 1% CREAM 28.35 GM TUBE TOP SCH ×2 (10:37→22:22)
[2018-06-09] MEDS: BACITRACIN 14 GM TUBE TOP SCH ×2 (10:37→22:22)
--- NOTE | 2018-06-09 11:37 | Physical Therapy Tx Note ---
Physical Therapy Tx Note - Treatment Note Tolerated: Good Total Time Spent With Patient: 30 Physical Therapy Tx Note: Detail (Patient was longsitting in bed upon SEWER PIPE PRESS OPERATOR arrival. Patient states no complaints. Patient performed the following exericises x15 reps each: SLR bilateral, ankle circles bilateral, supine hip abduction left, supine adductor squeeze, and glut squeezes. Patient transferred supine to sit independently. Patient performed the following exercises seated on the edge of bed: heel slides left x15, and hamstring sets right x10. Patient tolerated treatment well. Patient displays decreased strength and endurance with hamstring sets, SLR, glut squeezes, and supine hip abduction. Patient reports fatigue after treatment. Patient was left seated on edge of bed with call light within reach.) Physical Therapy Problem List: Detail (1) Assistance with bed mobility and transfers 2) Pain in L LE and immobilization R UE and L LE 3) Nonambulatory) Physical Therapy Goals: 1) The patient will be independent with all bed mobility. 2) The patient will be independent with all transfers, maintaining NWB status. 3) The patient will be independent with wheelchair mobility Prognosis: Good Physical Therapy Plan: PT 1-2 times a day M-F for bed mobility, transfers, wheelchair mobility, AROM L ankle and hip as allowed by immobilizer.
--- NOTE | 2018-06-09 14:59 | Physical Therapy Tx Note ---
Physical Therapy Tx Note - Treatment Note Tolerated: Good Total Time Spent With Patient: 30 Physical Therapy Tx Note: Detail (The patient was in bed when PT arrived. The patient transferred independently to wheelchair and propelled wheelchair to bathroom where she transferred independently to toilet. The patient was able to dress upper body independently and required minimal assist putting on briefs and shorts over brace. The patient pulled up pants independently in a standing position. The patient was transported to Rehab kitchen. The patient was able to propel wheelchair in kitchen, opened oven and refrigerator door and stood to reach into cupboard. The patient returned to room and transferred independently into bed from wheelchair. The patient was left with call light within reach.) Physical Therapy Problem List: Detail (1) Assistance with bed mobility and transfers 2) Pain in L LE and immobilization R UE and L LE 3) Nonambulatory) Physical Therapy Goals: 1) The patient will be independent with all bed mobility. 2) The patient will be independent with all transfers, maintaining NWB status. 3) The patient will be independent with wheelchair mobility Physical Therapy Plan: PT 1-2 times a day M-F for bed mobility, transfers, wheelchair mobility, AROM L ankle and hip as allowed by immobilizer.
[2018-06-09] MEDS: ENOXAPARIN 40 MG/0.4 ML SYR SQ SCH (18:06)
[2018-06-09] MEDS: CILOSTAZOL 100 MG TABLET PO SCH (18:20)
[2018-06-09] MEDS: ACETAMINOPHEN 500 MG TABLET PO PRN (20:37)
[2018-06-09] MEDS: ATORVASTATIN 20 MG TABLET PO SCH (20:39)
[2018-06-09] MEDS: CYCLOBENZAPRINE 10MG TABLET PO PRN (22:08)
[2018-06-10] MEDS: HYDROCODONE/APAP 7.5/325MG TABLET PO PRN ×5 (02:21→23:30)
[2018-06-10] MEDS: IPRATROPIUM INH SCH ×5 (05:50→21:39)
[2018-06-10] MEDS: XOPENEX PUFF SCH ×5 (05:51→21:39)
[2018-06-10] MEDS: PANTOPRAZOLE SODIUM 40 MG TABLET PO SCH (06:23)
[2018-06-10] MEDS: LEVOTHYROXINE SOD 112 MCG TAB PO SCH (06:24)
[2018-06-10] MEDS: HYDROCHLOROTHIAZIDE 25 MG TABLET PO SCH (10:17)
[2018-06-10] MEDS: LISINOPRIL 20 MG TABLET PO SCH (10:17)
[2018-06-10] MEDS: BACITRACIN 14 GM TUBE TOP SCH ×2 (10:17→23:34)
[2018-06-10] MEDS: DOCUSATE SODIUM 100 MG CAPSULE PO SCH ×2 (10:18→23:31)
[2018-06-10] MEDS: ENOXAPARIN 40 MG/0.4 ML SYR SQ SCH (10:18)
[2018-06-10] MEDS: HYDROCORTISONE 1% CREAM 28.35 GM TUBE TOP SCH ×2 (10:18→23:34)
--- NOTE | 2018-06-10 11:37 | Physical Therapy Tx Note ---
Physical Therapy Tx Note - Treatment Note Tolerated: Good Total Time Spent With Patient: 35 Physical Therapy Tx Note: Detail (Patient was supine in bed upon CALL CENTER RECEPTIONIST arrival. Patient states LEs sore today, left LE swollen. Patient states she thinks she overdid it with exercises yesterday. Patient transferred sit to supine independently. Patient transferred to wheelchair sit to and from stand pivot transfer independently. Patient propelled self in wheelchair 230 feet. Patient transferred sit to and from stand independently. Patient doffed and donned leg brace independently. Patient required several rest breaks with wheelchair mobility due to fatigue. Patient displays decreased strength and endurance with wheelchair mobility and donning leg brace. Patient reports she' s tired after treatment. Patient was left longsitting in bed with call light within reach.) Physical Therapy Problem List: Detail (1) Assistance with bed mobility and transfers 2) Pain in L LE and immobilization R UE and L LE 3) Nonambulatory) Physical Therapy Goals: 1) The patient will be independent with all bed mobility. 2) The patient will be independent with all transfers, maintaining NWB status. 3) The patient will be independent with wheelchair mobility Prognosis: Good Physical Therapy Plan: PT 1-2 times a day M-F for bed mobility, transfers, wheelchair mobility, AROM L ankle and hip as allowed by immobilizer.
--- NOTE | 2018-06-10 14:08 | Physical Therapy Tx Note ---
Physical Therapy Tx Note - Treatment Note Tolerated: Good Total Time Spent With Patient: 20 Physical Therapy Tx Note: Detail (Patient was longsitting in bed upon PLATING FOREMAN arrival. Patient states tired this afternoon. Patient doffed and donned left knee brace with min assist to help reach strap around leg on proximal thigh. Patient required rest breaks with doffing and donning knee brace due to fatigue. Patient declined further activity and exercises due to fatigue. Patient was left longsitting in bed with call light within reach.) Physical Therapy Problem List: Detail (1) Assistance with bed mobility and transfers 2) Pain in L LE and immobilization R UE and L LE 3) Nonambulatory) Physical Therapy Goals: 1) The patient will be independent with all bed mobility. 2) The patient will be independent with all transfers, maintaining NWB status. 3) The patient will be independent with wheelchair mobility Prognosis: Good Physical Therapy Plan: PT 1-2 times a day M-F for bed mobility, transfers, wheelchair mobility, AROM L ankle and hip as allowed by immobilizer.
[2018-06-10] MEDS: ATORVASTATIN 20 MG TABLET PO SCH (23:30)
[2018-06-10] MEDS: CYCLOBENZAPRINE 10MG TABLET PO PRN (23:31)
[2018-06-11] MEDS: ACETAMINOPHEN 500 MG TABLET PO PRN ×3 (04:51→20:08)
[2018-06-11] MEDS: IPRATROPIUM INH SCH ×5 (05:59→22:34)
[2018-06-11] MEDS: XOPENEX PUFF SCH ×5 (05:59→22:34)
[2018-06-11] MEDS: LEVOTHYROXINE SOD 112 MCG TAB PO SCH (07:00)
[2018-06-11] MEDS: PANTOPRAZOLE SODIUM 40 MG TABLET PO SCH (07:01)
[2018-06-11] MEDS: HYDROCODONE/APAP 7.5/325MG TABLET PO PRN ×3 (09:53→22:28)
[2018-06-11] MEDS: LISINOPRIL 20 MG TABLET PO SCH (09:54)
[2018-06-11] MEDS: DOCUSATE SODIUM 100 MG CAPSULE PO SCH ×2 (09:54→22:28)
[2018-06-11] MEDS: HYDROCHLOROTHIAZIDE 25 MG TABLET PO SCH (09:54)
[2018-06-11] MEDS: BACITRACIN 14 GM TUBE TOP SCH ×2 (09:54→22:34)
[2018-06-11] MEDS: ENOXAPARIN 40 MG/0.4 ML SYR SQ SCH (09:55)
[2018-06-11] MEDS: HYDROCORTISONE 1% CREAM 28.35 GM TUBE TOP SCH ×2 (09:55→22:35)
--- NOTE | 2018-06-11 10:47 | Physical Therapy Tx Note ---
Physical Therapy Tx Note - Treatment Note Tolerated: Good Total Time Spent With Patient: 30 Physical Therapy Tx Note: Detail (The patient was up in chair and had just finished cleaning up and getting dressed. The patient reports she dressed herself but did not take knee brace off. The patient completed the following LE exercises: seated heel slides, supine SLR, quad sets, gluteal sets, hip abduction and ankle pumps all x 10 reps, ( reps. were reduced secondary to increased complaints of pain/soreness with 15 reps.) The patient's L knee AROM was measured as 75 degrees of flexion and 0 degrees of extension. The patient was also instructed in how to lock and unlock knee brace. The patient was left in bed with call light within reach.) Physical Therapy Problem List: Detail (1) Assistance with bed mobility and transfers 2) Pain in L LE and immobilization R UE and L LE 3) Nonambulatory) Physical Therapy Goals: 1) The patient will be independent with all bed mobility. 2) The patient will be independent with all transfers, maintaining NWB status. 3) The patient will be independent with wheelchair mobility Physical Therapy Plan: PT 1-2 times a day M-F for bed mobility, transfers, wheelchair mobility, AROM L ankle and hip as allowed by immobilizer.
--- NOTE | 2018-06-11 14:45 | Occupational Therapy Tx Note ---
Occupational Therapy Tx Note - Treatment Note Occupational Therapy Treatment Note: Detail (Pt very fatigued this afternoon and wanting to hold OT.) Occupational Therapy Problem List: Detail (1. Decreased Ind with dressing tasks. 2. Decreased Ind with showering. 3. Decreased Ind with functional mobility needed for safe and Ind self cares. 4. Decreased Ind with right UE AROM exercises needed to maintain motion in unaffected joints.) Occupational Therapy Goals: 1. Pt will be Ind with total body dressing using modified techniques including LE brace and UE sling. 2. Pt will be Ind with total body showering in sitting. 3. Pt will be Ind with bed mobility and transfers needed for self care activities. 4. Pt will be Ind with right elbow , wrist and hand AROM exercises. Occupational Therapy Plan: OT 2-4 days per week to address self cares, functional mobility and UE function to allow safe and Ind return home.
[2018-06-11] MEDS: ATORVASTATIN 20 MG TABLET PO SCH (20:08)
[2018-06-11] MEDS: CYCLOBENZAPRINE 10MG TABLET PO PRN (22:28)
[2018-06-12] MEDS: HYDROCODONE/APAP 7.5/325MG TABLET PO PRN ×4 (02:27→22:39)
[2018-06-12] MEDS: XOPENEX PUFF SCH ×5 (06:40→22:40)
[2018-06-12] MEDS: IPRATROPIUM INH SCH ×5 (06:40→22:41)
[2018-06-12] MEDS: LEVOTHYROXINE SOD 112 MCG TAB PO SCH (06:51)
[2018-06-12] MEDS: PANTOPRAZOLE SODIUM 40 MG TABLET PO SCH (06:52)
[2018-06-12] MEDS: DOCUSATE SODIUM 100 MG CAPSULE PO SCH ×2 (09:49→22:39)
[2018-06-12] MEDS: HYDROCORTISONE 1% CREAM 28.35 GM TUBE TOP SCH ×2 (09:49→22:40)
[2018-06-12] MEDS: HYDROCHLOROTHIAZIDE 25 MG TABLET PO SCH (09:49)
[2018-06-12] MEDS: BACITRACIN 14 GM TUBE TOP SCH ×2 (09:49→22:39)
[2018-06-12] MEDS: ENOXAPARIN 40 MG/0.4 ML SYR SQ SCH (09:49)
[2018-06-12] MEDS: LISINOPRIL 20 MG TABLET PO SCH (09:50)
[2018-06-12] MEDS: ACETAMINOPHEN 500 MG TABLET PO PRN ×2 (09:50→20:51)
[2018-06-12] MEDS: ATORVASTATIN 20 MG TABLET PO SCH (20:52)
[2018-06-12] MEDS: CYCLOBENZAPRINE 10MG TABLET PO PRN (22:40)
[2018-06-13] MEDS: HYDROCODONE/APAP 7.5/325MG TABLET PO PRN ×4 (02:24→22:14)
[2018-06-13] MEDS: PANTOPRAZOLE SODIUM 40 MG TABLET PO SCH (06:25)
[2018-06-13] MEDS: LEVOTHYROXINE SOD 112 MCG TAB PO SCH (06:25)
[2018-06-13] MEDS: XOPENEX PUFF SCH ×5 (06:52→22:14)
[2018-06-13] MEDS: IPRATROPIUM INH SCH ×5 (06:52→22:15)
[2018-06-13] MEDS: BACITRACIN 14 GM TUBE TOP SCH ×2 (10:30→22:15)
[2018-06-13] MEDS: HYDROCORTISONE 1% CREAM 28.35 GM TUBE TOP SCH ×2 (10:30→22:15)
[2018-06-13] MEDS: HYDROCHLOROTHIAZIDE 25 MG TABLET PO SCH (10:33)
[2018-06-13] MEDS: DOCUSATE SODIUM 100 MG CAPSULE PO SCH ×2 (10:33→22:14)
[2018-06-13] MEDS: LISINOPRIL 20 MG TABLET PO SCH (10:33)
[2018-06-13] MEDS: ACETAMINOPHEN 500 MG TABLET PO PRN ×2 (10:33→20:25)
[2018-06-13] MEDS: ENOXAPARIN 40 MG/0.4 ML SYR SQ SCH (10:34)
[2018-06-13] MEDS: ATORVASTATIN 20 MG TABLET PO SCH (20:25)
[2018-06-13] MEDS: CYCLOBENZAPRINE 10MG TABLET PO PRN (22:14)
[2018-06-14] MEDS: HYDROCODONE/APAP 7.5/325MG TABLET PO PRN ×4 (03:43→22:34)
[2018-06-14] MEDS: IPRATROPIUM INH SCH ×5 (05:25→22:35)
[2018-06-14] MEDS: XOPENEX PUFF SCH ×5 (05:25→22:35)
[2018-06-14] MEDS: PANTOPRAZOLE SODIUM 40 MG TABLET PO SCH (06:55)
[2018-06-14] MEDS: LEVOTHYROXINE SOD 112 MCG TAB PO SCH (06:55)
--- NOTE | 2018-06-14 11:09 | Occupational Therapy Tx Note ---
Occupational Therapy Tx Note - Treatment Note Tolerated: Good Total Time Spent With Patient: 30 (ADL) Occupational Therapy Treatment Note: Detail (S: Pt in bed, sore from using different muscles. O: Supine to sit Indly, transferred to wheelchair Indly, propelled self to bathroom and transferred to commode Indly, completed toileting Indly. Reviewed donning/doffing left LE brace. Pt transferred back to bed and then to long sitting Indly. She was able to loosen all straps and reposition brace with verbal cues. She was able to reattach fasteners with verbal cues for snapping fasteners first and then re-tightening velcro to ensure good fit. Pt doffed PJ top and sling and donned shirt and sling Indly. Pt able to use break out man for LE dressing and she reports Ind with donning slipper sock using break out man. A: Pt demonstrated Ind with doffing and donning LE brace in long sitting in bed. Ind with total body dressing using break out man. Ind with transfers and toileting. Pt fatigues easily and requires short rest breaks.) Occupational Therapy Problem List: Detail (1. Decreased Ind with dressing tasks. 2. Decreased Ind with showering. 3. Decreased Ind with functional mobility needed for safe and Ind self cares. 4. Decreased Ind with right UE AROM exercises needed to maintain motion in unaffected joints.) Occupational Therapy Goals: 1. Pt will be Ind with total body dressing using modified techniques including LE brace and UE sling. 2. Pt will be Ind with total body showering in sitting. 3. Pt will be Ind with bed mobility and transfers needed for self care activities. 4. Pt will be Ind with right elbow , wrist and hand AROM exercises. Prognosis: Good Occupational Therapy Plan: OT 2-4 days per week to address self cares, functional mobility and UE function to allow safe and Ind return home.
[2018-06-14] MEDS: ENOXAPARIN 40 MG/0.4 ML SYR SQ SCH (11:21)
[2018-06-14] MEDS: DOCUSATE SODIUM 100 MG CAPSULE PO SCH ×2 (11:22→22:34)
[2018-06-14] MEDS: LISINOPRIL 20 MG TABLET PO SCH (11:22)
[2018-06-14] MEDS: HYDROCHLOROTHIAZIDE 25 MG TABLET PO SCH (11:22)
[2018-06-14] MEDS: ACETAMINOPHEN 500 MG TABLET PO PRN (11:22)
[2018-06-14] MEDS: BACITRACIN 14 GM TUBE TOP SCH ×2 (11:23→22:37)
[2018-06-14] MEDS: HYDROCORTISONE 1% CREAM 28.35 GM TUBE TOP SCH ×2 (11:24→22:36)
--- NOTE | 2018-06-14 13:24 | Physical Therapy Tx Note ---
Physical Therapy Tx Note - Treatment Note Tolerated: Good Total Time Spent With Patient: 20 Physical Therapy Tx Note: Detail (The patient was in bed when PT arrived. The patient complained of increased soreness over her entire L side ( trunk, arm and knee). The patient transfered Independently from wheelchair to and from bed and was able to handle wheelchair from bed ie: unlock breaks and push wheelchair out of the way. The patient completed the following L LE exercises with Don Shiloh brace in place: seated heel slides, hip abduction, hip adductor squeezes , gluteal sets, ankle pumps , SLR and quad sets all x 10 reps. The patient 's L knee AROM was 80 degrees. The patient refused further activity due to muscle soreness. The patient continues to progress well with muscle soreness being a limitation.) Physical Therapy Problem List: Detail (1) Assistance with bed mobility and transfers 2) Pain in L LE and immobilization R UE and L LE 3) Nonambulatory) Physical Therapy Goals: 1) The patient will be independent with all bed mobility. 2) The patient will be independent with all transfers, maintaining NWB status. 3) The patient will be independent with wheelchair mobility Physical Therapy Plan: PT 1-2 times a day M-F for bed mobility, transfers, wheelchair mobility, AROM L ankle and hip as allowed by immobilizer.
[2018-06-14] MEDS ORDERED: FLUCONAZOLE 100 MG TABLET PO ONE (20:39)
[2018-06-14] MEDS: ATORVASTATIN 20 MG TABLET PO SCH (20:54)
[2018-06-14] MEDS: CLOTRIMAZOLE/BETAMET 15 GM TUBE TOP SCH (22:34)
[2018-06-14] MEDS: CYCLOBENZAPRINE 10MG TABLET PO PRN (22:34)
[2018-06-15] MEDS: HYDROCODONE/APAP 7.5/325MG TABLET PO PRN ×3 (03:57→22:24)
[2018-06-15] MEDS: PANTOPRAZOLE SODIUM 40 MG TABLET PO SCH (06:34)
[2018-06-15] MEDS: LEVOTHYROXINE SOD 112 MCG TAB PO SCH (06:34)
[2018-06-15] MEDS: IPRATROPIUM INH SCH ×5 (06:51→21:31)
[2018-06-15] MEDS: XOPENEX PUFF SCH ×5 (06:51→21:31)
[2018-06-15] MEDS: BACITRACIN 14 GM TUBE TOP SCH ×2 (09:29→22:00)
[2018-06-15] MEDS: HYDROCHLOROTHIAZIDE 25 MG TABLET PO SCH (09:30)
[2018-06-15] MEDS: CLOTRIMAZOLE/BETAMET 15 GM TUBE TOP SCH ×3 (09:30→22:00)
[2018-06-15] MEDS: ENOXAPARIN 40 MG/0.4 ML SYR SQ SCH (09:30)
[2018-06-15] MEDS: LISINOPRIL 20 MG TABLET PO SCH (09:30)
[2018-06-15] MEDS: HYDROCORTISONE 1% CREAM 28.35 GM TUBE TOP SCH ×2 (09:30→22:00)
[2018-06-15] MEDS: DOCUSATE SODIUM 100 MG CAPSULE PO SCH ×2 (09:30→22:24)
--- NOTE | 2018-06-15 13:36 | Physical Therapy Tx Note ---
Physical Therapy Tx Note - Treatment Note Tolerated: Fair Total Time Spent With Patient: 30 Physical Therapy Tx Note: Detail (The patient was in bed when PT arrived. The patient had complaints of lower back pain and L knee pain. The patient completed the following exercises in bed: SLR, quad sets, gluteal sets, hip adductor sets all x 10 reps, seated back stretch forward 3 reps x 15-20 second holds, seated heel slides L knee x 5 reps. The patient transferred independently into wheelchair and propelled wheelchair using L UE and R LE 130 feet before tiring.) Physical Therapy Problem List: Detail (1) Assistance with bed mobility and transfers 2) Pain in L LE and immobilization R UE and L LE 3) Nonambulatory) Physical Therapy Goals: 1) The patient will be independent with all bed mobility ( Goal Met). 2) The patient will be independent with all transfers, maintaining NWB status (Goal met). 3) The patient will be independent with wheelchair mobility 200 feet plus , community distances (updated goal). 4) The patient will increase L knee AROM by 5 to 10 degrees to increase ability to complete ADL's (updated goal) Physical Therapy Plan: PT 1-2 times a day M-F for wheelchair moblity, LE strengthening and L knee AROM exercises.
--- NOTE | 2018-06-15 15:28 | Occupational Therapy Tx Note ---
Occupational Therapy Tx Note - Treatment Note Tolerated: Good Total Time Spent With Patient: 35 (THER EX) Occupational Therapy Treatment Note: Detail (S: Pt seen in Rehab gym. O: Pt transferred to [facility] with SBA and completed 10 min on level 1 with left UE and right LE with one short rest break. Transferred back to wheelchair and positioned at table. Pt completed left UE overhead repetitive reaching activity with graded clothespins. Provided pt with green theraputty and she completed 5 min of fish and game club manager, pinch and rolling activity with left UE. Pt transported back to room and transferred into bed Indly. A: Pt fatigued after activity with some shortness of breath during Nustep exercise.) Occupational Therapy Problem List: Detail (1. Decreased Ind with dressing tasks. 2. Decreased Ind with showering. 3. Decreased Ind with functional mobility needed for safe and Ind self cares. 4. Decreased Ind with right UE AROM exercises needed to maintain motion in unaffected joints.) Occupational Therapy Goals: 1. Pt will be Ind with total body dressing using modified techniques including LE brace and UE sling. 2. Pt will be Ind with total body showering in sitting. 3. Pt will be Ind with bed mobility and transfers needed for self care activities. 4. Pt will be Ind with right elbow , wrist and hand AROM exercises. Prognosis: Good Occupational Therapy Plan: OT 2-4 days per week to address self cares, functional mobility and UE function to allow safe and Ind return home.
[2018-06-15] MEDS: ACETAMINOPHEN 500 MG TABLET PO PRN (18:19)
[2018-06-15] MEDS: ATORVASTATIN 20 MG TABLET PO SCH (20:37)
[2018-06-15] MEDS: CYCLOBENZAPRINE 10MG TABLET PO PRN (22:26)
[2018-06-16] MEDS: HYDROCODONE/APAP 7.5/325MG TABLET PO PRN ×4 (04:09→22:21)
[2018-06-16] MEDS: LISINOPRIL 20 MG TABLET PO SCH ×2 (07:16→09:30)
[2018-06-16] MEDS: HYDROCHLOROTHIAZIDE 25 MG TABLET PO SCH ×2 (07:17→09:28)
[2018-06-16] MEDS: XOPENEX PUFF SCH ×3 (07:18→21:48)
[2018-06-16] MEDS: PANTOPRAZOLE SODIUM 40 MG TABLET PO SCH (07:18)
[2018-06-16] MEDS: LEVOTHYROXINE SOD 112 MCG TAB PO SCH (07:18)
[2018-06-16] MEDS: IPRATROPIUM INH SCH ×3 (07:18→21:47)
[2018-06-16] MEDS: DOCUSATE SODIUM 100 MG CAPSULE PO SCH ×2 (09:22→22:21)
[2018-06-16] MEDS: ENOXAPARIN 40 MG/0.4 ML SYR SQ SCH (09:22)
[2018-06-16] MEDS: BACITRACIN 14 GM TUBE TOP SCH ×2 (09:27→23:20)
[2018-06-16] MEDS: HYDROCORTISONE 1% CREAM 28.35 GM TUBE TOP SCH ×2 (09:28→23:19)
[2018-06-16] MEDS: CLOTRIMAZOLE/BETAMET 15 GM TUBE TOP SCH ×3 (09:29→23:20)
--- NOTE | 2018-06-16 11:18 | Physical Therapy Tx Note ---
Physical Therapy Tx Note - Treatment Note Tolerated: Fair Total Time Spent With Patient: 15 Physical Therapy Tx Note: Detail (The patient was lying in bed when PT arrived. The patient's surgery was cancelled this am. The patient reports her back pain is decreased today. The patient completed the following LE exercises: quad sets and gluteal sets combined, SLR, hip abduction, hip adductor squeezes and heel slides all x 10 reps. The patient's L knee AROM remains 80 degrees of flexion. The patient's knee brace was adjusted and call light was placed within reach. Will see the patient in Rehab deparment this pm.) Physical Therapy Problem List: Detail (1) Assistance with bed mobility and transfers 2) Pain in L LE and immobilization R UE and L LE 3) Nonambulatory) Physical Therapy Goals: 1) The patient will be independent with all bed mobility ( Goal Met). 2) The patient will be independent with all transfers, maintaining NWB status (Goal met). 3) The patient will be independent with wheelchair mobility 200 feet plus , community distances (updated goal). 4) The patient will increase L knee AROM by 5 to 10 degrees to increase ability to complete ADL's (updated goal) Physical Therapy Plan: PT 1-2 times a day M-F for wheelchair moblity, LE strengthening and L knee AROM exercises.
--- NOTE | 2018-06-16 15:15 | Physical Therapy Tx Note ---
Physical Therapy Tx Note - Treatment Note Tolerated: Good Total Time Spent With Patient: 40 Physical Therapy Tx Note: Detail (The patient was in bed when PT arrived. The patient transferred independently to wheelchair and propelled wheelchair with R LE and L UE a distance of 158 feet x 1, on carpet and around obstacles in gift shop 60 feet x 1. Shortness of breath was noted while patient was propelling wheelchair. The patient completed the following exercises in Rehab gym: 1 set of clothes pins with varying resistance and reaching at varying heights, heel slides x 10 reps, hip adductor squeezes x 10 reps. The patient's O2 sat level remained in the 90's throughout activity. The patient's session was shortened due to fatigue.) Physical Therapy Problem List: Detail (1) Assistance with bed mobility and transfers 2) Pain in L LE and immobilization R UE and L LE 3) Nonambulatory) Physical Therapy Goals: 1) The patient will be independent with all bed mobility ( Goal Met). 2) The patient will be independent with all transfers, maintaining NWB status (Goal met). 3) The patient will be independent with wheelchair mobility 200 feet plus , community distances (updated goal). 4) The patient will increase L knee AROM by 5 to 10 degrees to increase ability to complete ADL's (updated goal) Physical Therapy Plan: PT 1-2 times a day M-F for wheelchair moblity, LE strengthening and L knee AROM exercises.
[2018-06-16] MEDS: ACETAMINOPHEN 500 MG TABLET PO PRN (19:50)
[2018-06-16] MEDS: CYCLOBENZAPRINE 10MG TABLET PO PRN (22:22)
[2018-06-16] MEDS: ATORVASTATIN 20 MG TABLET PO SCH (22:22)
[2018-06-17] MEDS: XOPENEX PUFF SCH ×6 (06:03→22:11)
[2018-06-17] MEDS: IPRATROPIUM INH SCH ×6 (06:03→22:11)
[2018-06-17] MEDS: PANTOPRAZOLE SODIUM 40 MG TABLET PO SCH (06:38)
[2018-06-17] MEDS: LEVOTHYROXINE SOD 112 MCG TAB PO SCH (06:40)
[2018-06-17] MEDS: ENOXAPARIN 40 MG/0.4 ML SYR SQ SCH (09:38)
[2018-06-17] MEDS: HYDROCODONE/APAP 7.5/325MG TABLET PO PRN ×2 (09:39→22:41)
[2018-06-17] MEDS: HYDROCHLOROTHIAZIDE 25 MG TABLET PO SCH (09:39)
[2018-06-17] MEDS: DOCUSATE SODIUM 100 MG CAPSULE PO SCH ×2 (09:40→22:41)
[2018-06-17] MEDS: LISINOPRIL 20 MG TABLET PO SCH (09:40)
[2018-06-17] MEDS: CLOTRIMAZOLE/BETAMET 15 GM TUBE TOP SCH ×3 (09:44→22:43)
[2018-06-17] MEDS: BACITRACIN 14 GM TUBE TOP SCH ×2 (09:44→22:42)
[2018-06-17] MEDS: HYDROCORTISONE 1% CREAM 28.35 GM TUBE TOP SCH ×2 (09:44→22:43)
--- NOTE | 2018-06-17 12:08 | Physical Therapy Tx Note ---
Physical Therapy Tx Note - Treatment Note Tolerated: Good Total Time Spent With Patient: 40 Physical Therapy Tx Note: Detail (Patient states no new complaints. Patient was in bathroom upon DAUB COLOR MIXER arrival. Patient propelled self in wheelchair x13 feet. Patient transferred sit to and from stand SBA x1. Patient transferred sit to supine independently. Patient required assistance to readjust and tighten brace. Patient transferred sit to and from stand SBA x1. Patient propelled self in wheelchair x 236 feet. Patient transferred sit to and from stand SBA x1. Patient performed Nustep L1 x8 minutes. Patient transferred sit to and from stand SBA x1. Patient propelled self in wheelchair x40 feet. Patient transferred sit to and from stand SBA x1. Patient transferred sit to supine independently. Patient performed the following exercises: quad sets with glut squeeze x10, and adductor squeeze with ball. Patient transferred supine to sit independently. Patient transferred sit to and from stand SBA x1. Patient tolerated treatment well. Patient reports fatigue with propelling wheelchair, Nustep, and exercises. Patient reports tired after treatment. Patient was left seated in wheelchair with call light within reach.) Physical Therapy Problem List: Detail (1) Assistance with bed mobility and transfers 2) Pain in L LE and immobilization R UE and L LE 3) Nonambulatory) Physical Therapy Goals: 1) The patient will be independent with all bed mobility ( Goal Met). 2) The patient will be independent with all transfers, maintaining NWB status (Goal met). 3) The patient will be independent with wheelchair mobility 200 feet plus , community distances (updated goal). 4) The patient will increase L knee AROM by 5 to 10 degrees to increase ability to complete ADL's (updated goal) Prognosis: Good Physical Therapy Plan: PT 1-2 times a day M-F for wheelchair moblity, LE strengthening and L knee AROM exercises.
--- NOTE | 2018-06-17 15:31 | Physical Therapy Tx Note ---
Physical Therapy Tx Note - Treatment Note Tolerated: Good Total Time Spent With Patient: 30 Physical Therapy Tx Note: Detail (Patient states no new complaints. Patient was seated in wheelchair upon SANDBLASTER GLASS arrival. Patient transferred sit to and from stand SBA x1. Patient transferred sitting to longsitting in bed. Patient performed the following exercises x10 reps each: ankle pumps, quad sets with glut squeeze, hip abduction, seated heel slides, right LAQ, right hamstring sets seated, and abdominal isometrics. Patient tolerated treatment well. Patient reports fatigued after treatment. Patient was left longsitting in bed with call light within reach.) Physical Therapy Problem List: Detail (1) Assistance with bed mobility and transfers 2) Pain in L LE and immobilization R UE and L LE 3) Nonambulatory) Physical Therapy Goals: 1) The patient will be independent with all bed mobility ( Goal Met). 2) The patient will be independent with all transfers, maintaining NWB status (Goal met). 3) The patient will be independent with wheelchair mobility 200 feet plus , community distances (updated goal). 4) The patient will increase L knee AROM by 5 to 10 degrees to increase ability to complete ADL's (updated goal) Prognosis: Good Physical Therapy Plan: PT 1-2 times a day M-F for wheelchair moblity, LE strengthening and L knee AROM exercises.
[2018-06-17] MEDS: ACETAMINOPHEN 500 MG TABLET PO PRN (19:35)
[2018-06-17] MEDS: ATORVASTATIN 20 MG TABLET PO SCH (21:54)
[2018-06-17] MEDS: CYCLOBENZAPRINE 10MG TABLET PO PRN (22:41)
[2018-06-18] MEDS: LEVOTHYROXINE SOD 112 MCG TAB PO SCH (06:04)
[2018-06-18] MEDS: PANTOPRAZOLE SODIUM 40 MG TABLET PO SCH (06:04)
[2018-06-18] MEDS: IPRATROPIUM INH SCH ×5 (06:16→22:55)
[2018-06-18] MEDS: XOPENEX PUFF SCH ×5 (06:16→22:55)
[2018-06-18] MEDS: HYDROCODONE/APAP 7.5/325MG TABLET PO PRN (07:31)
--- NOTE | 2018-06-18 10:17 | Occupational Therapy Tx Note ---
Occupational Therapy Tx Note - Treatment Note Occupational Therapy Treatment Note: Detail (Pt scheduled for surgery today therefore no OT scheduled for today.) Occupational Therapy Problem List: Detail (1. Decreased Ind with dressing tasks. 2. Decreased Ind with showering. 3. Decreased Ind with functional mobility needed for safe and Ind self cares. 4. Decreased Ind with right UE AROM exercises needed to maintain motion in unaffected joints.) Occupational Therapy Goals: 1. Pt will be Ind with total body dressing using modified techniques including LE brace and UE sling. 2. Pt will be Ind with total body showering in sitting. 3. Pt will be Ind with bed mobility and transfers needed for self care activities. 4. Pt will be Ind with right elbow , wrist and hand AROM exercises. Occupational Therapy Plan: OT 2-4 days per week to address self cares, functional mobility and UE function to allow safe and Ind return home.
[2018-06-18] MEDS: LISINOPRIL 20 MG TABLET PO SCH (10:58)
[2018-06-18] MEDS: HYDROCORTISONE 1% CREAM 28.35 GM TUBE TOP SCH ×2 (10:58→23:48)
[2018-06-18] MEDS: BACITRACIN 14 GM TUBE TOP SCH ×2 (10:58→23:47)
[2018-06-18] MEDS: CLOTRIMAZOLE/BETAMET 15 GM TUBE TOP SCH ×3 (10:58→23:49)
[2018-06-18] MEDS: HYDROCHLOROTHIAZIDE 25 MG TABLET PO SCH (10:58)
[2018-06-18] MEDS: DOCUSATE SODIUM 100 MG CAPSULE PO SCH ×2 (10:58→23:51)
--- NOTE | 2018-06-18 11:51 | Physical Therapy Tx Note ---
Physical Therapy Tx Note - Treatment Note Physical Therapy Tx Note: Detail (The patient will not be seen today secondary to having surgery.) Physical Therapy Problem List: Detail (1) Assistance with bed mobility and transfers 2) Pain in L LE and immobilization R UE and L LE 3) Nonambulatory) Physical Therapy Goals: 1) The patient will be independent with all bed mobility ( Goal Met). 2) The patient will be independent with all transfers, maintaining NWB status (Goal met). 3) The patient will be independent with wheelchair mobility 200 feet plus , community distances (updated goal). 4) The patient will increase L knee AROM by 5 to 10 degrees to increase ability to complete ADL's (updated goal) Physical Therapy Plan: PT 1-2 times a day M-F for wheelchair moblity, LE strengthening and L knee AROM exercises.
[2018-06-18] MEDS: ATORVASTATIN 20 MG TABLET PO SCH (21:30)
[2018-06-19] MEDS: LEVOTHYROXINE SOD 112 MCG TAB PO SCH (06:18)
[2018-06-19] MEDS: PANTOPRAZOLE SODIUM 40 MG TABLET PO SCH (06:18)
[2018-06-19] MEDS: IPRATROPIUM INH SCH ×5 (06:19→22:08)
[2018-06-19] MEDS: XOPENEX PUFF SCH ×5 (06:20→22:09)
[2018-06-19] MEDS: HYDROCODONE/APAP 7.5/325MG TABLET PO PRN ×4 (08:37→21:42)
[2018-06-19] MEDS: LISINOPRIL 20 MG TABLET PO SCH (09:26)
[2018-06-19] MEDS: ENOXAPARIN 40 MG/0.4 ML SYR SQ SCH (09:26)
[2018-06-19] MEDS: DOCUSATE SODIUM 100 MG CAPSULE PO SCH ×2 (09:26→21:44)
[2018-06-19] MEDS: HYDROCHLOROTHIAZIDE 25 MG TABLET PO SCH (09:27)
[2018-06-19] MEDS: BACITRACIN 14 GM TUBE TOP SCH ×2 (09:27→22:04)
[2018-06-19] MEDS: HYDROCORTISONE 1% CREAM 28.35 GM TUBE TOP SCH ×2 (09:28→22:04)
[2018-06-19] MEDS: CLOTRIMAZOLE/BETAMET 15 GM TUBE TOP SCH ×3 (09:28→22:04)
[2018-06-19] MEDS: ATORVASTATIN 20 MG TABLET PO SCH (20:34)
[2018-06-20] MEDS: HYDROCODONE/APAP 7.5/325MG TABLET PO PRN ×5 (04:35→22:12)
[2018-06-20] MEDS: IPRATROPIUM INH SCH ×5 (06:03→22:11)
[2018-06-20] MEDS: LEVOTHYROXINE SOD 112 MCG TAB PO SCH (06:04)
[2018-06-20] MEDS: XOPENEX PUFF SCH ×5 (06:04→22:12)
[2018-06-20] MEDS: PANTOPRAZOLE SODIUM 40 MG TABLET PO SCH (06:04)
[2018-06-20] MEDS: HYDROCORTISONE 1% CREAM 28.35 GM TUBE TOP SCH ×2 (10:16→22:14)
[2018-06-20] MEDS: BACITRACIN 14 GM TUBE TOP SCH ×2 (10:16→22:14)
[2018-06-20] MEDS: CLOTRIMAZOLE/BETAMET 15 GM TUBE TOP SCH ×3 (10:17→22:15)
[2018-06-20] MEDS: DOCUSATE SODIUM 100 MG CAPSULE PO SCH ×2 (10:59→22:12)
[2018-06-20] MEDS: LISINOPRIL 20 MG TABLET PO SCH (10:59)
[2018-06-20] MEDS: HYDROCHLOROTHIAZIDE 25 MG TABLET PO SCH (10:59)
[2018-06-20] MEDS: ENOXAPARIN 40 MG/0.4 ML SYR SQ SCH (10:59)
[2018-06-20] MEDS: ACETAMINOPHEN 500 MG TABLET PO PRN ×2 (11:29→20:05)
[2018-06-20] MEDS: ATORVASTATIN 20 MG TABLET PO SCH (20:05)
[2018-06-20] MEDS: CYCLOBENZAPRINE 10MG TABLET PO PRN (22:12)
[2018-06-21] MEDS: HYDROCODONE/APAP 7.5/325MG TABLET PO PRN ×6 (02:23→22:21)
[2018-06-21] MEDS: IPRATROPIUM INH SCH ×5 (06:04→21:54)
[2018-06-21] MEDS: XOPENEX PUFF SCH ×5 (06:04→21:54)
[2018-06-21] MEDS: LEVOTHYROXINE SOD 112 MCG TAB PO SCH (06:16)
[2018-06-21] MEDS: PANTOPRAZOLE SODIUM 40 MG TABLET PO SCH (06:16)
[2018-06-21] MEDS: BACITRACIN 14 GM TUBE TOP SCH ×2 (09:35→22:23)
[2018-06-21] MEDS: HYDROCORTISONE 1% CREAM 28.35 GM TUBE TOP SCH ×2 (09:36→22:23)
[2018-06-21] MEDS: CLOTRIMAZOLE/BETAMET 15 GM TUBE TOP SCH ×3 (09:36→22:23)
[2018-06-21] MEDS: HYDROCHLOROTHIAZIDE 25 MG TABLET PO SCH (09:36)
[2018-06-21] MEDS: DOCUSATE SODIUM 100 MG CAPSULE PO SCH ×2 (09:36→22:21)
[2018-06-21] MEDS: LISINOPRIL 20 MG TABLET PO SCH (09:37)
[2018-06-21] MEDS: ENOXAPARIN 40 MG/0.4 ML SYR SQ SCH (09:37)
--- NOTE | 2018-06-21 12:33 | Occupational Therapy Tx Note ---
Occupational Therapy Tx Note - Treatment Note Occupational Therapy Treatment Note: Detail (Pt refused OT today secondary to being very painful from recent surgery and due to presence of pain pump.) Occupational Therapy Problem List: Detail (1. Decreased Ind with dressing tasks. 2. Decreased Ind with showering. 3. Decreased Ind with functional mobility needed for safe and Ind self cares. 4. Decreased Ind with right UE AROM exercises needed to maintain motion in unaffected joints.) Occupational Therapy Goals: 1. Pt will be Ind with total body dressing using modified techniques including LE brace and UE sling. 2. Pt will be Ind with total body showering in sitting. 3. Pt will be Ind with bed mobility and transfers needed for self care activities. 4. Pt will be Ind with right elbow , wrist and hand AROM exercises. Occupational Therapy Plan: OT 2-4 days per week to address self cares, functional mobility and UE function to allow safe and Ind return home.
--- NOTE | 2018-06-21 16:03 | Physical Therapy Tx Note ---
Physical Therapy Tx Note - Treatment Note Tolerated: Fair Total Time Spent With Patient: 20 Physical Therapy Tx Note: Detail (The patient refused to get up stating she was in too much pain in her R shoulder. The patient did agree to complete L LE exercises in bed. The patient completed the following exercises: heel slides x 15 reps, ankle pumps, quadsets/gluteal sets x 15 reps, SLR x 15 reps, hip abduction x 10 reps and hip adductor squeezes x 15 reps. The patient had no complaints of pain in left knee and reports her LE's feel stronger. The patient was left with call light was within reach.) Physical Therapy Problem List: Detail (1) Assistance with bed mobility and transfers 2) Pain in L LE and immobilization R UE and L LE 3) Nonambulatory) Physical Therapy Goals: 1) The patient will be independent with all bed mobility ( Goal Met). 2) The patient will be independent with all transfers, maintaining NWB status (Goal met). 3) The patient will be independent with wheelchair mobility 200 feet plus , community distances (updated goal). 4) The patient will increase L knee AROM by 5 to 10 degrees to increase ability to complete ADL's (updated goal) Physical Therapy Plan: PT 1-2 times a day M-F for wheelchair moblity, LE strengthening and L knee AROM exercises.
[2018-06-21] MEDS: ACETAMINOPHEN 500 MG TABLET PO PRN (19:43)
[2018-06-21] MEDS: ATORVASTATIN 20 MG TABLET PO SCH (19:43)
[2018-06-21] MEDS: CYCLOBENZAPRINE 10MG TABLET PO PRN (22:21)
[2018-06-22] MEDS: HYDROCODONE/APAP 7.5/325MG TABLET PO PRN ×6 (02:49→22:19)
[2018-06-22] MEDS: XOPENEX PUFF SCH ×5 (05:55→21:31)
[2018-06-22] MEDS: IPRATROPIUM INH SCH ×5 (05:55→21:30)
[2018-06-22] MEDS: MAGNESIUM HYDROXIDE 30 ML UDC PO PRN (06:42)
[2018-06-22] MEDS: LEVOTHYROXINE SOD 112 MCG TAB PO SCH (06:43)
[2018-06-22] MEDS: PANTOPRAZOLE SODIUM 40 MG TABLET PO SCH (06:43)
[2018-06-22] MEDS: HYDROCHLOROTHIAZIDE 25 MG TABLET PO SCH (10:31)
[2018-06-22] MEDS: LISINOPRIL 20 MG TABLET PO SCH (10:31)
[2018-06-22] MEDS: ENOXAPARIN 40 MG/0.4 ML SYR SQ SCH (10:32)
[2018-06-22] MEDS: DOCUSATE SODIUM 100 MG CAPSULE PO SCH ×2 (10:32→22:18)
[2018-06-22] MEDS: HYDROCORTISONE 1% CREAM 28.35 GM TUBE TOP SCH ×2 (10:35→21:23)
[2018-06-22] MEDS: BACITRACIN 14 GM TUBE TOP SCH ×2 (10:35→21:23)
[2018-06-22] MEDS: CLOTRIMAZOLE/BETAMET 15 GM TUBE TOP SCH ×3 (10:36→21:23)
--- NOTE | 2018-06-22 11:48 | Physical Therapy Tx Note ---
Physical Therapy Tx Note - Treatment Note Tolerated: Good Total Time Spent With Patient: 20 Physical Therapy Tx Note: Detail (The patient had just returned from bathroom to bed. The patient had less R shoulder pain complaints today. Pain pump to be removed today. The patient requested to complete L LE exercises in bed due to fatigued from being up in the bathroom. The paitent completed the following exercises: gluteal sets, abdominal isometrics, quad sets, SLR, hip abduction supine and heel slides all 10-15 reps. The patient's L knee AROM in Don Shiloh brace was 93 degrees. The patient continues to complain of a "popping" sensation in back with SLR and hip abduction. Will assess the patient's ability to acheive transfers this pm once pain pump is removed.) Physical Therapy Problem List: Detail (1) Assistance with bed mobility and transfers 2) Pain in L LE and immobilization R UE and L LE 3) Nonambulatory) Physical Therapy Goals: 1) The patient will be independent with all bed mobility ( Goal Met). 2) The patient will be independent with all transfers, maintaining NWB status (Goal met). 3) The patient will be independent with wheelchair mobility 200 feet plus , community distances (updated goal). 4) The patient will increase L knee AROM by 5 to 10 degrees to increase ability to complete ADL's (updated goal) Physical Therapy Plan: PT 1-2 times a day M-F for wheelchair moblity, LE strengthening and L knee AROM exercises.
--- NOTE | 2018-06-22 14:52 | Physical Therapy Tx Note ---
Physical Therapy Tx Note - Treatment Note Total Time Spent With Patient: 20 Physical Therapy Tx Note: Detail (The patient's mobility status was re- evaluated s/p shoulder surgery. The patient was independent with supine to and from sit transfer. The patient was independent with bed to and from wheelchair transfer with shortness of breath noted. The patient's abdominal isometrics and gluteal sets were reviewed for proper technique. The patient refused further activity secondary to fatigue. The patient agreed to work with OT tomorrow on sponge bathing.) Physical Therapy Problem List: Detail (1) Assistance with bed mobility and transfers 2) Pain in L LE and immobilization R UE and L LE 3) Nonambulatory) Physical Therapy Goals: 1) The patient will be independent with all bed mobility ( Goal Met). 2) The patient will be independent with all transfers, maintaining NWB status (Goal met). 3) The patient will be independent with wheelchair mobility 200 feet plus , community distances (updated goal). 4) The patient will increase L knee AROM by 5 to 10 degrees to increase ability to complete ADL's (updated goal) Physical Therapy Plan: PT 1-2 times a day M-F for wheelchair moblity, LE strengthening and L knee AROM exercises.
[2018-06-22] MEDS: ATORVASTATIN 20 MG TABLET PO SCH (20:07)
[2018-06-22] MEDS: CYCLOBENZAPRINE 10MG TABLET PO PRN (22:18)
[2018-06-23] MEDS: HYDROCODONE/APAP 7.5/325MG TABLET PO PRN ×2 (02:04→06:03)
[2018-06-23] MEDS: LEVOTHYROXINE SOD 112 MCG TAB PO SCH (06:03)
[2018-06-23] MEDS: PANTOPRAZOLE SODIUM 40 MG TABLET PO SCH (06:03)
[2018-06-23] MEDS: IPRATROPIUM INH SCH ×5 (06:12→22:04)
[2018-06-23] MEDS: XOPENEX PUFF SCH ×5 (06:12→22:04)
[2018-06-23] MEDS: ENOXAPARIN 40 MG/0.4 ML SYR SQ SCH (09:49)
[2018-06-23] MEDS: HYDROCHLOROTHIAZIDE 25 MG TABLET PO SCH (09:49)
[2018-06-23] MEDS: DOCUSATE SODIUM 100 MG CAPSULE PO SCH ×2 (09:49→21:46)
[2018-06-23] MEDS: LISINOPRIL 20 MG TABLET PO SCH (09:49)
[2018-06-23] MEDS: OXYCODONE/APAP 10MG-325MG TABLET PO PRN ×4 (09:50→21:45)
[2018-06-23] MEDS: BACITRACIN 14 GM TUBE TOP SCH ×2 (09:51→21:46)
[2018-06-23] MEDS: HYDROCORTISONE 1% CREAM 28.35 GM TUBE TOP SCH ×2 (09:52→21:47)
[2018-06-23] MEDS: CLOTRIMAZOLE/BETAMET 15 GM TUBE TOP SCH ×3 (09:52→21:47)
--- NOTE | 2018-06-23 14:02 | Occupational Therapy Tx Note ---
Occupational Therapy Tx Note - Treatment Note Tolerated: Good Total Time Spent With Patient: 50 Occupational Therapy Treatment Note: Detail (Pt supine in bed upon arrival. C/o severe pain and hesitant to engage in therapy due to fear of increasing this pain. Pt refused shower but agreed to sponge bathing at side of bed. Independent with bed mobility supine<>SS EOB. Completed UB, chest, face, abdomen , and upper RLE bathing independently with exception of underneath R arm. Completed oral care with setup independently at EOB. Completed hair care independently. Pt refused to practice sling don/doff at this time due to pain. Physical therapy had spoken to surgeon's nurse regarding abduction pillow. Instructions are that this pillow is to remain until pt's follow-up visit. Pt was informed of this and after explanation of why it was needed, allowed therapist to don abduction pillow. Pt pleasant and willing to engage in therapy throughout session.) Occupational Therapy Problem List: Detail (1. Decreased Ind with dressing tasks. 2. Decreased Ind with showering. 3. Decreased Ind with functional mobility needed for safe and Ind self cares. 4. Decreased Ind with right UE AROM exercises needed to maintain motion in unaffected joints.) Occupational Therapy Goals: 1. Pt will be Ind with total body dressing using modified techniques including LE brace and UE sling. 2. Pt will be Ind with total body showering in sitting. 3. Pt will be Ind with bed mobility and transfers needed for self care activities. 4. Pt will be Ind with right elbow , wrist and hand AROM exercises. Prognosis: Good Occupational Therapy Plan: OT 2-4 days per week to address self cares, functional mobility and UE function to allow safe and Ind return home.
--- NOTE | 2018-06-23 14:35 | Physical Therapy Tx Note ---
Physical Therapy Tx Note - Treatment Note Tolerated: Fair Total Time Spent With Patient: 45 Physical Therapy Tx Note: Detail (Pt reclined in bed upon arrival; awake/alert, apprehensive about therapy for shoulder. Educated patient re: pendulum exercises and reinforced that ALL shoulder motion is PASSIVE at this time. Pt assisted in removing sling; sensitive to any movement. Began with passive/ assisted R elbow flexion and extension x 10, wrist pronation/supination x 10, finger flexion/extension (fist/open) x 10. Encouraged to move wrist/hand even while in sling. Performed 5 reps each of 1-2" excursion into R shoulder flexion and abduction, then assisted in donning sling w/o abduction pillow, as patient stated it was too uncomfortable. Pt screamed/cried/yelled during much of treatment, but cooperated. Placed soft pillow under R elbow for support; bedside table and call light in reach. Called Dr. Faustin's office to clarify use of abduction pillow; spoke w/Morena, who stated that abduction pillow must be in place until patient follows up with Dr. Faustin. [facility] notified.) Physical Therapy Problem List: Detail (1) Assistance with bed mobility and transfers 2) Pain in L LE and immobilization R UE and L LE 3) Nonambulatory) Physical Therapy Goals: 1) The patient will be independent with all bed mobility ( Goal Met). 2) The patient will be independent with all transfers, maintaining NWB status (Goal met). 3) The patient will be independent with wheelchair mobility 200 feet plus , community distances (updated goal). 4) The patient will increase L knee AROM by 5 to 10 degrees to increase ability to complete ADL's (updated goal) Prognosis: Good Physical Therapy Plan: PT 1-2 times a day M-F for wheelchair moblity, LE strengthening and L knee AROM exercises; as of 06/23/18, passive pendulum exercises to R shoulder.
[2018-06-23] MEDS: ATORVASTATIN 20 MG TABLET PO SCH (20:00)
[2018-06-23] MEDS: CYCLOBENZAPRINE 10MG TABLET PO PRN (21:45)
[2018-06-24] MEDS: OXYCODONE/APAP 10MG-325MG TABLET PO PRN ×5 (01:58→21:26)
[2018-06-24] MEDS: IPRATROPIUM INH SCH ×5 (06:02→22:17)
[2018-06-24] MEDS: XOPENEX PUFF SCH ×5 (06:03→22:17)
[2018-06-24] MEDS: LEVOTHYROXINE SOD 112 MCG TAB PO SCH (06:10)
[2018-06-24] MEDS: PANTOPRAZOLE SODIUM 40 MG TABLET PO SCH (06:10)
[2018-06-24] MEDS ORDERED: TRAMADOL HCL 50 MG TABLET PO ONE (08:54)
[2018-06-24] MEDS: LISINOPRIL 20 MG TABLET PO SCH (09:46)
[2018-06-24] MEDS: DOCUSATE SODIUM 100 MG CAPSULE PO SCH ×2 (09:47→21:27)
[2018-06-24] MEDS: ENOXAPARIN 40 MG/0.4 ML SYR SQ SCH (09:47)
[2018-06-24] MEDS: HYDROCHLOROTHIAZIDE 25 MG TABLET PO SCH (09:47)
[2018-06-24] MEDS: CLOTRIMAZOLE/BETAMET 15 GM TUBE TOP SCH ×3 (09:51→22:39)
[2018-06-24] MEDS: HYDROCORTISONE 1% CREAM 28.35 GM TUBE TOP SCH ×2 (09:51→21:22)
[2018-06-24] MEDS: BACITRACIN 14 GM TUBE TOP SCH ×2 (09:52→21:22)
--- NOTE | 2018-06-24 13:50 | Physical Therapy Tx Note ---
Physical Therapy Tx Note - Treatment Note Tolerated: Good Total Time Spent With Patient: 30 Physical Therapy Tx Note: Detail (Patient states no new complaints. Patient declined wheelchair mobility. Patient performed the following exercises x10-20 reps: ankle pumps, glut squeeze with quad sets, heel slides, supine hip abduction, SLR, and isometric hip adduction. Patient tolerated treatment well. Patient displays decreased strength and endurance with SLR, and supine hip abduction. Patient was left supine in bed with call light within reach.) Physical Therapy Problem List: Detail (1) Assistance with bed mobility and transfers 2) Pain in L LE and immobilization R UE and L LE 3) Nonambulatory) Physical Therapy Goals: 1) The patient will be independent with all bed mobility ( Goal Met). 2) The patient will be independent with all transfers, maintaining NWB status (Goal met). 3) The patient will be independent with wheelchair mobility 200 feet plus , community distances (updated goal). 4) The patient will increase L knee AROM by 5 to 10 degrees to increase ability to complete ADL's (updated goal) Prognosis: Good Physical Therapy Plan: PT 1-2 times a day M-F for wheelchair moblity, LE strengthening and L knee AROM exercises; as of 06/23/18, passive pendulum exercises to R shoulder.
--- NOTE | 2018-06-24 14:12 | Physical Therapy Tx Note ---
Physical Therapy Tx Note - Treatment Note Tolerated: Good Total Time Spent With Patient: 20 Physical Therapy Tx Note: Detail (Pt sitting up in bed upon arrival; awake/ alert and in much better spirits than yesterday. States pain is under better control w/Ultram, 03/02 presently. Actively moving hand, wrist; performed 10 reps each of open/close hand, wrist supination/pronation, elbow flexion/ extension in sling w/elbow strap undone. Passive shoulder flexion and abduction in minimal range of motion (1-2 inch excursion) with sling on. Provided w/foam ball that came with sling for squeezing, instructed to do periodically during the day. Instructed to ensure placement of waist strap lower on abdomen when getting out of bed, as it causes abduction pillow to push up under arm instead of remaining between trunk and arm. Verbalized good understanding. Left up in bed with bedside table and lunch tray in place in front of her. Assisted w/opening Ensure bottle; states she is able to open juice cans independently. Call light in reach. Nrsg notified.) Physical Therapy Problem List: Detail (1) Assistance with bed mobility and transfers 2) Pain in L LE and immobilization R UE and L LE 3) Nonambulatory) Physical Therapy Goals: 1) The patient will be independent with all bed mobility ( Goal Met). 2) The patient will be independent with all transfers, maintaining NWB status (Goal met). 3) The patient will be independent with wheelchair mobility 200 feet plus , community distances (updated goal). 4) The patient will increase L knee AROM by 5 to 10 degrees to increase ability to complete ADL's (updated goal) Prognosis: Good Physical Therapy Plan: PT 1-2 times a day M-F for wheelchair moblity, LE strengthening and L knee AROM exercises; as of 06/23/18, passive pendulum exercises to R shoulder.
[2018-06-24] MEDS: TRAMADOL HCL 50 MG TABLET PO PRN (19:35)
[2018-06-24] MEDS: ATORVASTATIN 20 MG TABLET PO SCH (21:27)
[2018-06-24] MEDS: CYCLOBENZAPRINE 10MG TABLET PO PRN (21:36)
[2018-06-25] MEDS: TRAMADOL HCL 50 MG TABLET PO PRN ×4 (02:09→23:11)
[2018-06-25] MEDS: OXYCODONE/APAP 10MG-325MG TABLET PO PRN ×4 (02:09→19:18)
[2018-06-25] MEDS: CLOTRIMAZOLE/BETAMET 15 GM TUBE TOP SCH ×4 (02:12→22:48)
[2018-06-25] MEDS: IPRATROPIUM INH SCH ×5 (05:43→21:58)
[2018-06-25] MEDS: XOPENEX PUFF SCH ×5 (05:44→21:58)
[2018-06-25] MEDS: PANTOPRAZOLE SODIUM 40 MG TABLET PO SCH (06:39)
[2018-06-25] MEDS: LEVOTHYROXINE SOD 112 MCG TAB PO SCH (06:39)
[2018-06-25] MEDS: CYCLOBENZAPRINE 10MG TABLET PO PRN ×3 (08:18→23:10)
[2018-06-25] MEDS: DOCUSATE SODIUM 100 MG CAPSULE PO SCH ×2 (10:01→21:41)
[2018-06-25] MEDS: LISINOPRIL 20 MG TABLET PO SCH (10:01)
[2018-06-25] MEDS: HYDROCHLOROTHIAZIDE 25 MG TABLET PO SCH (10:01)
[2018-06-25] MEDS: BACITRACIN 14 GM TUBE TOP SCH ×2 (10:23→22:48)
[2018-06-25] MEDS: HYDROCORTISONE 1% CREAM 28.35 GM TUBE TOP SCH ×2 (10:24→22:48)
[2018-06-25] MEDS: ENOXAPARIN 40 MG/0.4 ML SYR SQ SCH (10:24)
--- NOTE | 2018-06-25 14:19 | Physical Therapy Tx Note ---
Physical Therapy Tx Note - Treatment Note Tolerated: Good Total Time Spent With Patient: 25 Physical Therapy Tx Note: Detail (Pt reclined in bed upon arrival, awake/alert, cooperative for therapy. Actively using R hand, squeezing ball; no difficulty with supination/pronation. Unfastened elbow strap and sling strap for active- assisted elbow flexion/extenion. VCs to relax shoulder to allow for passive pendulum w/sling unfastened but not removed. Tolerated 2-3 inch excursion of flexion/extension, abduction, external rotation, all passively x 10 reps each. Reapplied sling and adjusted neck pad for appropriate placement. Discussed self care and hygiene and ability to don/doff sling w/abduction pillow independently. Left bedside table and call light in reach. Nrsg notified.) Physical Therapy Problem List: Detail (1) Assistance with bed mobility and transfers 2) Pain in L LE and immobilization R UE and L LE 3) Nonambulatory) Physical Therapy Goals: 1) The patient will be independent with all bed mobility ( Goal Met). 2) The patient will be independent with all transfers, maintaining NWB status (Goal met). 3) The patient will be independent with wheelchair mobility 200 feet plus , community distances (updated goal). 4) The patient will increase L knee AROM by 5 to 10 degrees to increase ability to complete ADL's (updated goal) Prognosis: Good Physical Therapy Plan: PT 1-2 times a day M-F for wheelchair moblity, LE strengthening and L knee AROM exercises; as of 06/23/18, passive pendulum exercises to R shoulder.
--- NOTE | 2018-06-25 14:50 | Occupational Therapy Tx Note ---
Occupational Therapy Tx Note - Treatment Note Tolerated: Good Total Time Spent With Patient: 40 Occupational Therapy Treatment Note: Detail (Pt supine in bed upon arrival. Independent bed mobility supine <> SS EOB. Pt appearing much more comfortable with decreased pain in R shld allowing for increased ease of bed mobility. Pt trialed independence with don/doff of brace including abduction pillow. Pt able to loosen all straps independently and work arm out of brace without assistance. V/c's for technique for clearing elbow out of brace. Pt not willing at this time to completely remove brace but after completing treatment session, commented that she would be willing to trial this at next visit. Pt able to re- position arm back into brace independently. She is independent with reaching behind her back to grasp over shoulder strap and don. Pt independent with clasp/ unclasping of around waist strap. Feel patient will be able to independently take brace off so that it is not touching her at all at next visit. Pt showed decrease pain throughout session. She was able to resolve fear of doffing brace independently and verbalizes more confidence to do this at next treatment session.) Occupational Therapy Problem List: Detail (1. Decreased Ind with dressing tasks. 2. Decreased Ind with showering. 3. Decreased Ind with functional mobility needed for safe and Ind self cares. 4. Decreased Ind with right UE AROM exercises needed to maintain motion in unaffected joints.) Occupational Therapy Goals: 1. Pt will be Ind with total body dressing using modified techniques including LE brace and UE sling. 2. Pt will be Ind with total body showering in sitting. 3. Pt will be Ind with bed mobility and transfers needed for self care activities. 4. Pt will be Ind with right elbow , wrist and hand AROM exercises. Prognosis: Good Occupational Therapy Plan: OT 2-4 days per week to address self cares, functional mobility and UE function to allow safe and Ind return home.
[2018-06-25] MEDS: ATORVASTATIN 20 MG TABLET PO SCH (21:38)
[2018-06-26] MEDS: OXYCODONE/APAP 10MG-325MG TABLET PO PRN ×4 (03:48→20:02)
[2018-06-26] MEDS: PANTOPRAZOLE SODIUM 40 MG TABLET PO SCH (06:21)
[2018-06-26] MEDS: LEVOTHYROXINE SOD 112 MCG TAB PO SCH (06:21)
[2018-06-26] MEDS: IPRATROPIUM INH SCH ×5 (06:26→21:20)
[2018-06-26] MEDS: XOPENEX PUFF SCH ×5 (06:26→21:20)
[2018-06-26] MEDS: BACITRACIN 14 GM TUBE TOP SCH ×2 (09:48→23:06)
[2018-06-26] MEDS: HYDROCORTISONE 1% CREAM 28.35 GM TUBE TOP SCH ×2 (09:48→23:06)
[2018-06-26] MEDS: DOCUSATE SODIUM 100 MG CAPSULE PO SCH ×2 (09:48→22:33)
[2018-06-26] MEDS: HYDROCHLOROTHIAZIDE 25 MG TABLET PO SCH (09:49)
[2018-06-26] MEDS: ENOXAPARIN 40 MG/0.4 ML SYR SQ SCH (09:49)
[2018-06-26] MEDS: CLOTRIMAZOLE/BETAMET 15 GM TUBE TOP SCH ×3 (09:49→23:07)
[2018-06-26] MEDS: LISINOPRIL 20 MG TABLET PO SCH (09:49)
[2018-06-26] MEDS: ATORVASTATIN 20 MG TABLET PO SCH (20:02)
[2018-06-26] MEDS: CYCLOBENZAPRINE 10MG TABLET PO PRN (22:32)
[2018-06-26] MEDS: TRAMADOL HCL 50 MG TABLET PO PRN (22:33)
[2018-06-27] MEDS: OXYCODONE/APAP 10MG-325MG TABLET PO PRN ×5 (01:47→20:33)
[2018-06-27] MEDS: TRAMADOL HCL 50 MG TABLET PO PRN ×3 (05:12→22:33)
[2018-06-27] MEDS: XOPENEX PUFF SCH ×5 (06:26→22:03)
[2018-06-27] MEDS: IPRATROPIUM INH SCH ×5 (06:26→22:03)
[2018-06-27] MEDS: PANTOPRAZOLE SODIUM 40 MG TABLET PO SCH (06:29)
[2018-06-27] MEDS: LEVOTHYROXINE SOD 112 MCG TAB PO SCH (06:29)
[2018-06-27] MEDS: BACITRACIN 14 GM TUBE TOP SCH ×2 (11:08→22:38)
[2018-06-27] MEDS: DOCUSATE SODIUM 100 MG CAPSULE PO SCH ×2 (11:08→22:33)
[2018-06-27] MEDS: ENOXAPARIN 40 MG/0.4 ML SYR SQ SCH (11:09)
[2018-06-27] MEDS: LISINOPRIL 20 MG TABLET PO SCH (11:09)
[2018-06-27] MEDS: HYDROCHLOROTHIAZIDE 25 MG TABLET PO SCH (11:09)
[2018-06-27] MEDS: CLOTRIMAZOLE/BETAMET 15 GM TUBE TOP SCH ×3 (11:10→22:38)
[2018-06-27] MEDS: MAGNESIUM HYDROXIDE 30 ML UDC PO PRN (11:10)
[2018-06-27] MEDS: HYDROCORTISONE 1% CREAM 28.35 GM TUBE TOP SCH ×2 (11:10→22:38)
[2018-06-27] MEDS: ATORVASTATIN 20 MG TABLET PO SCH (20:33)
[2018-06-27] MEDS: CYCLOBENZAPRINE 10MG TABLET PO PRN (22:34)
[2018-06-28] MEDS: OXYCODONE/APAP 10MG-325MG TABLET PO PRN ×5 (03:02→20:12)
[2018-06-28] MEDS: TRAMADOL HCL 50 MG TABLET PO PRN ×3 (06:05→22:20)
[2018-06-28] MEDS: PANTOPRAZOLE SODIUM 40 MG TABLET PO SCH (06:05)
[2018-06-28] MEDS: LEVOTHYROXINE SOD 112 MCG TAB PO SCH (06:05)
[2018-06-28] MEDS: IPRATROPIUM INH SCH ×5 (06:09→21:27)
[2018-06-28] MEDS: XOPENEX PUFF SCH ×5 (06:09→21:27)
[2018-06-28 09:07] LABS: URINE APPEARANCE CLOUDY; URINE BILIRUBIN NEGATIVE (NEGATIVE); URINE BLOOD TRACE-I (NEGATIVE); URINE COLOR YELLOW; URINE GLUCOSE (UA) NEGATIVE (NEGATIVE); URINE KETONE NEGATIVE (NEGATIVE); URINE LEUKOCYTE ESTERASE LARGE (NEGATIVE); URINE NITRITE POSITIVE (NEGATIVE); URINE PROTEIN NEGATIVE (NEGATIVE); URINE UROBILINOGEN 0.2 E.U./dL (0.20 - 1.00)
[2018-06-28 09:16] LABS: URINE BACTERIA 4+; URINE RBC 0 - 2 (NONE SEEN); URINE WBC >50 (0-2/hpf)
[2018-06-28 09:17] LABS: URINE EPITHELIAL CELLS 0 - 2 (FEW)
[2018-06-28] MEDS: ENOXAPARIN 40 MG/0.4 ML SYR SQ SCH (09:21)
[2018-06-28] MEDS: DOCUSATE SODIUM 100 MG CAPSULE PO SCH ×2 (09:22→22:20)
[2018-06-28] MEDS: HYDROCHLOROTHIAZIDE 25 MG TABLET PO SCH (09:22)
[2018-06-28] MEDS: CLOTRIMAZOLE/BETAMET 15 GM TUBE TOP SCH ×3 (09:22→22:28)
[2018-06-28] MEDS: HYDROCORTISONE 1% CREAM 28.35 GM TUBE TOP SCH ×2 (09:22→22:28)
[2018-06-28] MEDS: LISINOPRIL 20 MG TABLET PO SCH (09:22)
[2018-06-28] MEDS: BACITRACIN 14 GM TUBE TOP SCH ×2 (09:22→22:27)
[2018-06-28] MEDS: CYCLOBENZAPRINE 10MG TABLET PO PRN ×2 (09:23→22:20)
--- NOTE | 2018-06-28 16:27 | Occupational Therapy Tx Note ---
Occupational Therapy Tx Note - Treatment Note Tolerated: Good Total Time Spent With Patient: 60 (ADL, ther ex) Occupational Therapy Treatment Note: Detail (S: Pt resting in bed, apprehensive about moving arm. O: Supine to sit Indly with HOB raised. Pt able to doff right UE sling Ind with minimal verbal cueing. Pt able to complete 3 sets of very gentle pendulum shoulder exercises at EOB. AROM x 10 to right elbow, forearm, wrist and hand. Pt educated to complete pendulum exercises several times daily. Pt able to don right UE sling with verbal cues and moderate difficulty. Pt transferred to wheelchair with assist to lock brakes and position wheelchair. Pt propelled self to bathroom and pivot transferred to commode Indly. She required max assist to doff briefs. She completed toileting hygiene Indly. Pt able to pull briefs up with min assist and pivot transferred to wheelchair. Pt propelled to sink and completed combing hair, washing face Indly. Pt propelled to EOB and completed transfer Indly including locking pepe wheelchair brakes. Pt sit to supine Indly. A: Pt reports less shoulder pain than she anticipated, she was able to complete toileting and transfers with less assist today.) Occupational Therapy Problem List: Detail (1. Decreased Ind with dressing tasks. 2. Decreased Ind with showering. 3. Decreased Ind with functional mobility needed for safe and Ind self cares. 4. Decreased Ind with right UE AROM exercises needed to maintain motion in unaffected joints.) Occupational Therapy Goals: 1. Pt will be Ind with total body dressing using modified techniques including LE brace and UE sling. 2. Pt will be Ind with total body showering in sitting. 3. Pt will be Ind with bed mobility and transfers needed for self care activities. 4. Pt will be Ind with right elbow , wrist and hand AROM exercises. Prognosis: Good Occupational Therapy Plan: OT 2-4 days per week to address self cares, functional mobility and UE function to allow safe and Ind return home.
--- NOTE | 2018-06-28 18:28 | Physical Therapy Tx Note ---
Physical Therapy Tx Note - Treatment Note Total Time Spent With Patient: 10 Physical Therapy Tx Note: Detail (Pt seen with OT for review of post-operative instructions, report of progress made over week. See OT note.) Physical Therapy Problem List: Detail (1) Assistance with bed mobility and transfers 2) Pain in L LE and immobilization R UE and L LE 3) Nonambulatory) Physical Therapy Goals: 1) The patient will be independent with all bed mobility ( Goal Met). 2) The patient will be independent with all transfers, maintaining NWB status (Goal met). 3) The patient will be independent with wheelchair mobility 200 feet plus , community distances (updated goal). 4) The patient will increase L knee AROM by 5 to 10 degrees to increase ability to complete ADL's (updated goal) Prognosis: Good Physical Therapy Plan: PT 1-2 times a day M-F for wheelchair moblity, LE strengthening and L knee AROM exercises; as of 06/23/18, passive pendulum exercises to R shoulder.
[2018-06-28] MEDS: ATORVASTATIN 20 MG TABLET PO SCH (20:12)
[2018-06-29] MEDS: OXYCODONE/APAP 10MG-325MG TABLET PO PRN ×5 (00:27→21:20)
[2018-06-29] MEDS: XOPENEX PUFF SCH ×5 (06:05→21:20)
[2018-06-29] MEDS: IPRATROPIUM INH SCH ×5 (06:05→21:20)
[2018-06-29] MEDS: PANTOPRAZOLE SODIUM 40 MG TABLET PO SCH (06:09)
[2018-06-29] MEDS: LEVOTHYROXINE SOD 112 MCG TAB PO SCH (06:09)
[2018-06-29] MEDS: BACITRACIN 14 GM TUBE TOP SCH ×2 (09:57→21:57)
[2018-06-29] MEDS: HYDROCHLOROTHIAZIDE 25 MG TABLET PO SCH (09:57)
[2018-06-29] MEDS: HYDROCORTISONE 1% CREAM 28.35 GM TUBE TOP SCH ×2 (09:57→21:57)
[2018-06-29] MEDS: CLOTRIMAZOLE/BETAMET 15 GM TUBE TOP SCH ×3 (09:57→21:57)
[2018-06-29] MEDS: DOCUSATE SODIUM 100 MG CAPSULE PO SCH ×2 (09:57→22:36)
[2018-06-29] MEDS: ENOXAPARIN 40 MG/0.4 ML SYR SQ SCH (09:58)
[2018-06-29] MEDS: LISINOPRIL 20 MG TABLET PO SCH (09:58)
[2018-06-29] MEDS: TRAMADOL HCL 50 MG TABLET PO PRN ×2 (13:55→22:37)
--- NOTE | 2018-06-29 15:05 | Physical Therapy Tx Note ---
Physical Therapy Tx Note - Treatment Note Tolerated: Fair Total Time Spent With Patient: 30 Physical Therapy Tx Note: Detail (The patient was in bed when PT arrived and complained of pain and fatigue. The patient was taken to Rehab department and complete Nu step using L UE and R LE x 4 and 1/2 minutes. The patient completed a toilet transfer in simulated bathroom without grab bars independently. The patient propelled wheelchair out of bathroom and out of smaller door. The patient transferred independently in and out of bed and was independent with supine to and from sit. Will continue to work on balance in a simulated kitchen/bathroom.) Physical Therapy Problem List: Detail (1) Assistance with bed mobility and transfers 2) Pain in L LE and immobilization R UE and L LE 3) Nonambulatory) Physical Therapy Goals: 1) The patient will be independent with all bed mobility ( Goal Met). 2) The patient will be independent with all transfers, maintaining NWB status (Goal met). 3) The patient will be independent with wheelchair mobility 200 feet plus , community distances (updated goal). 4) The patient will increase L knee AROM by 5 to 10 degrees to increase ability to complete ADL's (updated goal) Physical Therapy Plan: PT 1-2 times a day M-F for wheelchair moblity, LE strengthening and L knee AROM exercises; as of 06/23/18, passive pendulum exercises to R shoulder.
--- NOTE | 2018-06-29 15:11 | Occupational Therapy Tx Note ---
Occupational Therapy Tx Note - Treatment Note Tolerated: Good Total Time Spent With Patient: 50 (ADL, ther ex) Occupational Therapy Treatment Note: Detail (S: Pt reports she is tired today. O: Reviewed modified UE dressing technique and pt was Ind with doffing UE sling and donning PJ top using modified technique. Pt Ind with donning shorts using tire recapping machine operator. Pt stood to complete right UE pendulum exercises x 2 sets with physical cues to use body vs. moving shoulder. AROM x 10 reps to right elbow, wrist, forearm and hand. Pt donned sling with min assist and transferred to wheelchair Indly. Pt propelled self 50 feet using left UE and right LE. Pt transferred back to EOB and then to supine Indly. A: Pt very fatigued overall but is improving. She cont. to have significant right shoulder pain.) Occupational Therapy Problem List: Detail (1. Decreased Ind with dressing tasks. 2. Decreased Ind with showering. 3. Decreased Ind with functional mobility needed for safe and Ind self cares. 4. Decreased Ind with right UE AROM exercises needed to maintain motion in unaffected joints.) Occupational Therapy Goals: 1. Pt will be Ind with total body dressing using modified techniques including LE brace and UE sling. 2. Pt will be Ind with total body showering in sitting. 3. Pt will be Ind with bed mobility and transfers needed for self care activities. 4. Pt will be Ind with right elbow , wrist and hand AROM exercises. Occupational Therapy Plan: OT 2-4 days per week to address self cares, functional mobility and UE function to allow safe and Ind return home.
[2018-06-29] MEDS: ATORVASTATIN 20 MG TABLET PO SCH (20:13)
[2018-06-29] MEDS: CYCLOBENZAPRINE 10MG TABLET PO PRN (22:37)
[2018-06-30] MEDS: OXYCODONE/APAP 10MG-325MG TABLET PO PRN ×4 (02:46→18:53)
[2018-06-30] MEDS: PANTOPRAZOLE SODIUM 40 MG TABLET PO SCH (06:12)
[2018-06-30] MEDS: LEVOTHYROXINE SOD 112 MCG TAB PO SCH (06:12)
[2018-06-30] MEDS: IPRATROPIUM INH SCH ×5 (06:27→21:39)
[2018-06-30] MEDS: XOPENEX PUFF SCH ×5 (06:28→21:40)
[2018-06-30] MEDS: ENOXAPARIN 40 MG/0.4 ML SYR SQ SCH (09:45)
[2018-06-30] MEDS: DOCUSATE SODIUM 100 MG CAPSULE PO SCH ×2 (09:45→21:16)
[2018-06-30] MEDS: LISINOPRIL 20 MG TABLET PO SCH (09:45)
[2018-06-30] MEDS: HYDROCHLOROTHIAZIDE 25 MG TABLET PO SCH (09:45)
[2018-06-30] MEDS: HYDROCORTISONE 1% CREAM 28.35 GM TUBE TOP SCH ×2 (09:46→21:16)
[2018-06-30] MEDS: BACITRACIN 14 GM TUBE TOP SCH ×2 (09:46→21:16)
[2018-06-30] MEDS: CLOTRIMAZOLE/BETAMET 15 GM TUBE TOP SCH ×3 (09:47→21:16)
[2018-06-30] MEDS: TRAMADOL HCL 50 MG TABLET PO PRN ×2 (10:51→22:26)
--- NOTE | 2018-06-30 15:23 | Occupational Therapy Tx Note ---
Occupational Therapy Tx Note - Treatment Note Tolerated: Good Total Time Spent With Patient: 75 (ADL) Occupational Therapy Treatment Note: Detail (S: Pt fatigued but ready for a shower. O: Supine to sit Indly and pivot transferred to wheelchair Indly. Pt propelled to bathroom and doffed sling, LE brace, briefs and shirt Indly. Pt transferred to shower seat and completed showering with assist for feet and back as well as SBA for standing to wash ron area. Pt dried self Indly. Pt donned PJ top and briefs Indly with use of scan coordinator. Pt completed grooming and hygiene tasks at sink Indly. Pt propelled to EOB and donned slipper socks Indly with use of scan coordinator. Pt transferred to EOB and donned sling Indly. Sit to long sitting Indly and donned LE brace with min assist to adjust velcro closures. A: Pt very fatigued after ADLs, Ind with showering with exception of back and feet, Ind with dressing using scan coordinator.) Occupational Therapy Problem List: Detail (1. Decreased Ind with dressing tasks. 2. Decreased Ind with showering. 3. Decreased Ind with functional mobility needed for safe and Ind self cares. 4. Decreased Ind with right UE AROM exercises needed to maintain motion in unaffected joints.) Occupational Therapy Goals: 1. Pt will be Ind with total body dressing using modified techniques including LE brace and UE sling. 2. Pt will be Ind with total body showering in sitting. 3. Pt will be Ind with bed mobility and transfers needed for self care activities. 4. Pt will be Ind with right elbow , wrist and hand AROM exercises. Prognosis: Good Occupational Therapy Plan: OT 2-4 days per week to address self cares, functional mobility and UE function to allow safe and Ind return home.
--- NOTE | 2018-06-30 16:25 | Physical Therapy Tx Note ---
Physical Therapy Tx Note - Treatment Note Tolerated: Good Total Time Spent With Patient: 30 Physical Therapy Tx Note: Detail (The patient had complaints of R shoulder pain and refused shoulder exercises. The patient was taken to Rehab department. The patient completed Nu -step x 8 minutes and completed LE exercises seated hip adductor squeezes, hip abduction with red T-band gluteal and quad sets. The patient completed all transfers independently.) Physical Therapy Problem List: Detail (1) Assistance with bed mobility and transfers 2) Pain in L LE and immobilization R UE and L LE 3) Nonambulatory) Physical Therapy Goals: 1) The patient will be independent with all bed mobility ( Goal Met). 2) The patient will be independent with all transfers, maintaining NWB status (Goal met). 3) The patient will be independent with wheelchair mobility 200 feet plus , community distances (updated goal). 4) The patient will increase L knee AROM by 5 to 10 degrees to increase ability to complete ADL's (updated goal) Physical Therapy Plan: PT 1-2 times a day M-F for wheelchair moblity, LE strengthening and L knee AROM exercises; as of 06/23/18, passive pendulum exercises to R shoulder.
[2018-06-30] MEDS: ATORVASTATIN 20 MG TABLET PO SCH (21:11)
[2018-06-30] MEDS: CYCLOBENZAPRINE 10MG TABLET PO PRN (22:28)
[2018-07-01] MEDS: OXYCODONE/APAP 10MG-325MG TABLET PO PRN ×5 (00:53→22:38)
[2018-07-01] MEDS: XOPENEX PUFF SCH ×5 (05:52→22:01)
[2018-07-01] MEDS: IPRATROPIUM INH SCH ×5 (05:52→22:01)
[2018-07-01] MEDS: LEVOTHYROXINE SOD 112 MCG TAB PO SCH (06:09)
[2018-07-01] MEDS: PANTOPRAZOLE SODIUM 40 MG TABLET PO SCH (06:09)
[2018-07-01] MEDS: BACITRACIN 14 GM TUBE TOP SCH ×2 (09:42→21:24)
[2018-07-01] MEDS: DOCUSATE SODIUM 100 MG CAPSULE PO SCH ×2 (09:42→22:38)
[2018-07-01] MEDS: HYDROCORTISONE 1% CREAM 28.35 GM TUBE TOP SCH ×2 (09:43→21:24)
[2018-07-01] MEDS: HYDROCHLOROTHIAZIDE 25 MG TABLET PO SCH (09:43)
[2018-07-01] MEDS: CLOTRIMAZOLE/BETAMET 15 GM TUBE TOP SCH ×3 (09:43→21:24)
[2018-07-01] MEDS: ENOXAPARIN 40 MG/0.4 ML SYR SQ SCH (09:44)
[2018-07-01] MEDS: LISINOPRIL 20 MG TABLET PO SCH (09:44)
[2018-07-01] MEDS: TRAMADOL HCL 50 MG TABLET PO PRN (09:45)
--- NOTE | 2018-07-01 12:11 | Physical Therapy Tx Note ---
Physical Therapy Tx Note - Treatment Note Tolerated: Good Total Time Spent With Patient: 35 Physical Therapy Tx Note: Detail (Patient states no new complaints. Patient was supine in bed upon COMPUTER ENGINEERING TECHNOLOGIST arrival. Patient transferred supine to sit independently. Patient performed pivot transfer to wheelchair independently. Patient propelled self in wheelchair 110 feet. Patient performed pivot transfer to Nustep independently. Patient performed Nustep L1 x10 minutes. Patient performed pivot transfer to wheelchair independently. Patient performed the following exercises x10 reps each: seated SLR, LAQ right, and seated isometric hip adduction. Patient performed pivot transfer to bed independently. Patient transferred sit to supine independently. Patient tolerated treatment well. Patient reports fatigue with propelling wheelchair. Patient was left supine in bed with call light within reach.) Physical Therapy Problem List: Detail (1) Assistance with bed mobility and transfers 2) Pain in L LE and immobilization R UE and L LE 3) Nonambulatory) Physical Therapy Goals: 1) The patient will be independent with all bed mobility ( Goal Met). 2) The patient will be independent with all transfers, maintaining NWB status (Goal met). 3) The patient will be independent with wheelchair mobility 200 feet plus , community distances (updated goal). 4) The patient will increase L knee AROM by 5 to 10 degrees to increase ability to complete ADL's (updated goal) Prognosis: Good Physical Therapy Plan: PT 1-2 times a day M-F for wheelchair moblity, LE strengthening and L knee AROM exercises; as of 06/23/18, passive pendulum exercises to R shoulder.
--- NOTE | 2018-07-01 15:08 | Physical Therapy Tx Note ---
Physical Therapy Tx Note - Treatment Note Tolerated: Good Total Time Spent With Patient: 25 Physical Therapy Tx Note: Detail (Pt sitting up in bed upon arrival. Sat at edge of bed independently. Independently removed sling and abduction pillow from R UE. Performed 10 reps each of R elbow flexion/extension, wrist pronation /supination; clockwise and counter-clockwise pendulums, flexion/extension, horizontal abduction/adduction independently. Donned R UE sling and abduction pillow independently. Pain ranged from 4/10 to 6/10 with all activity; tolerated all activity well. Left sitting at edge of bed with call light in reach.) Physical Therapy Problem List: Detail (1) Assistance with bed mobility and transfers 2) Pain in L LE and immobilization R UE and L LE 3) Nonambulatory) Physical Therapy Goals: 1) The patient will be independent with all bed mobility ( Goal Met). 2) The patient will be independent with all transfers, maintaining NWB status (Goal met). 3) The patient will be independent with wheelchair mobility 200 feet plus , community distances (updated goal). 4) The patient will increase L knee AROM by 5 to 10 degrees to increase ability to complete ADL's (updated goal) Prognosis: Good Physical Therapy Plan: PT 1-2 times a day M-F for wheelchair moblity, LE strengthening and L knee AROM exercises; as of 06/23/18, passive pendulum exercises to R shoulder.
[2018-07-01] MEDS: ATORVASTATIN 20 MG TABLET PO SCH (20:02)
[2018-07-01] MEDS: CYCLOBENZAPRINE 10MG TABLET PO PRN (22:38)
[2018-07-02] MEDS: TRAMADOL HCL 50 MG TABLET PO PRN ×3 (01:51→22:33)
[2018-07-02] MEDS: OXYCODONE/APAP 10MG-325MG TABLET PO PRN ×4 (05:50→19:48)
[2018-07-02] MEDS: IPRATROPIUM INH SCH ×5 (05:57→21:59)
[2018-07-02] MEDS: XOPENEX PUFF SCH ×5 (06:00→22:00)
[2018-07-02] MEDS: LEVOTHYROXINE SOD 112 MCG TAB PO SCH (06:19)
[2018-07-02] MEDS: PANTOPRAZOLE SODIUM 40 MG TABLET PO SCH (06:19)
[2018-07-02] MEDS: LISINOPRIL 20 MG TABLET PO SCH (10:39)
[2018-07-02] MEDS: DOCUSATE SODIUM 100 MG CAPSULE PO SCH ×2 (10:39→22:32)
[2018-07-02] MEDS: HYDROCHLOROTHIAZIDE 25 MG TABLET PO SCH (10:39)
[2018-07-02] MEDS: HYDROCORTISONE 1% CREAM 28.35 GM TUBE TOP SCH ×2 (10:42→22:03)
[2018-07-02] MEDS: BACITRACIN 14 GM TUBE TOP SCH ×2 (10:42→22:03)
[2018-07-02] MEDS: CLOTRIMAZOLE/BETAMET 15 GM TUBE TOP SCH ×3 (10:43→22:04)
[2018-07-02] MEDS: ENOXAPARIN 40 MG/0.4 ML SYR SQ SCH (10:43)
--- NOTE | 2018-07-02 14:07 | Physical Therapy Tx Note ---
Physical Therapy Tx Note - Treatment Note Tolerated: Good Total Time Spent With Patient: 35 Physical Therapy Tx Note: Detail (Patient states a little tired this afternoon. Patient was supine in bed upon [employer]END[employer] arrival. Patient transferred supine to sit independently. Patient transferred sit to and from stand pivot transfer independently. Patient propelled self in wheelchair 127 feet. Patient performed the following seated exercises x20 reps each: SLR, hamstring curls with red theraband, heel raises, toe raises, isometric hip abduction, hip adductor squeezes, and LAQ. Patient transferred sit to and from stand independently. Patient transferred sit to supine independently. Patient reports fatigued after treatment. Patient was left supine in bed with call light within reach.) Physical Therapy Problem List: Detail (1) Assistance with bed mobility and transfers 2) Pain in L LE and immobilization R UE and L LE 3) Nonambulatory) Physical Therapy Goals: 1) The patient will be independent with all bed mobility ( Goal Met). 2) The patient will be independent with all transfers, maintaining NWB status (Goal met). 3) The patient will be independent with wheelchair mobility 200 feet plus , community distances (updated goal). 4) The patient will increase L knee AROM by 5 to 10 degrees to increase ability to complete ADL's (updated goal) Prognosis: Good Physical Therapy Plan: PT 1-2 times a day M-F for wheelchair moblity, LE strengthening and L knee AROM exercises; as of 06/23/18, passive pendulum exercises to R shoulder.
--- NOTE | 2018-07-02 14:14 | Occupational Therapy Tx Note ---
Occupational Therapy Tx Note - Treatment Note Tolerated: Good Total Time Spent With Patient: 65 (ADL, ther ex) Occupational Therapy Treatment Note: Detail (S: Pt painful today and tearful at times. O: Pt doffed sling Indly and completed 10 reps x 1 set of right elbow flexion/extension, forearm supination/pronation and wrist flexion/ extension as well as 2 min with green putty for director inpatient headache program strengthening. Pt completed 10 reps x 2 sets of pendulums in sitting with verbal cues for passive motion vs. active motion. Pt transferred to wheelchair Indly and propelled to sink Indly. She completed doffing of PJ top and briefs, sponge bathing in sitting and standing and donning shirt, briefs and shorts Indly. Pt completed all grooming and hygiene Indly. Pt propelled self to EOB and transferred to EOB Indly. Pt donned sling Indly. A: Pt is Ind with all dressing, grooming/ hygiene and dressing although she continues to be very fatigued. Pt c/o increased pain and "slipping" sensation with UE ROM exercises.) Occupational Therapy Problem List: Detail (1. Decreased Ind with dressing tasks. 2. Decreased Ind with showering. 3. Decreased Ind with functional mobility needed for safe and Ind self cares. 4. Decreased Ind with right UE AROM exercises needed to maintain motion in unaffected joints.) Occupational Therapy Goals: 1. Pt will be Ind with total body dressing using modified techniques including LE brace and UE sling. 2. Pt will be Ind with total body showering in sitting. 3. Pt will be Ind with bed mobility and transfers needed for self care activities. 4. Pt will be Ind with right elbow , wrist and hand AROM exercises. Prognosis: Good Occupational Therapy Plan: OT 2-4 days per week to address self cares, functional mobility and UE function to allow safe and Ind return home.
[2018-07-02] MEDS: ATORVASTATIN 20 MG TABLET PO SCH (19:48)
[2018-07-02] MEDS: CYCLOBENZAPRINE 10MG TABLET PO PRN (22:32)
[2018-07-03] MEDS: OXYCODONE/APAP 10MG-325MG TABLET PO PRN ×3 (01:04→19:42)
[2018-07-03] MEDS: IPRATROPIUM INH SCH ×5 (05:57→22:00)
[2018-07-03] MEDS: XOPENEX PUFF SCH ×5 (05:57→22:00)
[2018-07-03] MEDS: LEVOTHYROXINE SOD 112 MCG TAB PO SCH (06:30)
[2018-07-03] MEDS: PANTOPRAZOLE SODIUM 40 MG TABLET PO SCH (06:30)
[2018-07-03] MEDS: BACITRACIN 14 GM TUBE TOP SCH ×2 (09:36→22:35)
[2018-07-03] MEDS: HYDROCORTISONE 1% CREAM 28.35 GM TUBE TOP SCH ×2 (09:36→22:35)
[2018-07-03] MEDS: CLOTRIMAZOLE/BETAMET 15 GM TUBE TOP SCH ×3 (09:37→22:36)
[2018-07-03] MEDS: HYDROCHLOROTHIAZIDE 25 MG TABLET PO SCH (10:28)
[2018-07-03] MEDS: LISINOPRIL 20 MG TABLET PO SCH (10:29)
[2018-07-03] MEDS: ENOXAPARIN 40 MG/0.4 ML SYR SQ SCH (10:41)
[2018-07-03] MEDS: DOCUSATE SODIUM 100 MG CAPSULE PO SCH ×2 (10:41→22:34)
[2018-07-03] MEDS: TRAMADOL HCL 50 MG TABLET PO PRN ×2 (14:17→22:34)
[2018-07-03] MEDS: ATORVASTATIN 20 MG TABLET PO SCH (19:42)
[2018-07-03] MEDS: CYCLOBENZAPRINE 10MG TABLET PO PRN (22:34)
[2018-07-04] MEDS: OXYCODONE/APAP 10MG-325MG TABLET PO PRN ×3 (03:05→18:43)
[2018-07-04] MEDS: IPRATROPIUM INH SCH ×5 (05:57→22:01)
[2018-07-04] MEDS: XOPENEX PUFF SCH ×5 (05:57→22:02)
[2018-07-04] MEDS: PANTOPRAZOLE SODIUM 40 MG TABLET PO SCH (06:08)
[2018-07-04] MEDS: LEVOTHYROXINE SOD 112 MCG TAB PO SCH (06:09)
[2018-07-04] MEDS: HYDROCORTISONE 1% CREAM 28.35 GM TUBE TOP SCH ×2 (09:05→21:14)
[2018-07-04] MEDS: BACITRACIN 14 GM TUBE TOP SCH ×2 (09:05→21:14)
[2018-07-04] MEDS: CLOTRIMAZOLE/BETAMET 15 GM TUBE TOP SCH ×3 (09:05→21:15)
[2018-07-04] MEDS: DOCUSATE SODIUM 100 MG CAPSULE PO SCH ×2 (09:10→22:28)
[2018-07-04] MEDS: ENOXAPARIN 40 MG/0.4 ML SYR SQ SCH (09:11)
[2018-07-04] MEDS: LISINOPRIL 20 MG TABLET PO SCH (10:57)
[2018-07-04] MEDS: HYDROCHLOROTHIAZIDE 25 MG TABLET PO SCH (10:57)
[2018-07-04] MEDS: TRAMADOL HCL 50 MG TABLET PO PRN ×2 (14:24→22:28)
[2018-07-04] MEDS: ATORVASTATIN 20 MG TABLET PO SCH (20:05)
[2018-07-04] MEDS: CYCLOBENZAPRINE 10MG TABLET PO PRN (22:28)
[2018-07-05] MEDS: OXYCODONE/APAP 10MG-325MG TABLET PO PRN ×4 (03:33→17:51)
[2018-07-05] MEDS: XOPENEX PUFF SCH ×5 (05:58→21:56)
[2018-07-05] MEDS: IPRATROPIUM INH SCH ×5 (05:58→21:55)
[2018-07-05] MEDS: PANTOPRAZOLE SODIUM 40 MG TABLET PO SCH (06:14)
[2018-07-05] MEDS: LEVOTHYROXINE SOD 112 MCG TAB PO SCH (06:17)
[2018-07-05] MEDS: CYCLOBENZAPRINE 10MG TABLET PO PRN ×2 (10:23→22:13)
[2018-07-05] MEDS: DOCUSATE SODIUM 100 MG CAPSULE PO SCH ×2 (10:24→22:13)
[2018-07-05] MEDS: HYDROCHLOROTHIAZIDE 25 MG TABLET PO SCH (10:24)
[2018-07-05] MEDS: LISINOPRIL 20 MG TABLET PO SCH (10:24)
[2018-07-05] MEDS: TRAMADOL HCL 50 MG TABLET PO PRN ×2 (10:24→22:12)
[2018-07-05] MEDS: ENOXAPARIN 40 MG/0.4 ML SYR SQ SCH (10:26)
[2018-07-05] MEDS: BACITRACIN 14 GM TUBE TOP SCH ×2 (15:11→22:14)
[2018-07-05] MEDS: CLOTRIMAZOLE/BETAMET 15 GM TUBE TOP SCH ×3 (15:11→22:14)
[2018-07-05] MEDS: HYDROCORTISONE 1% CREAM 28.35 GM TUBE TOP SCH ×2 (15:11→22:14)
--- NOTE | 2018-07-05 17:07 | Physical Therapy Tx Note ---
Physical Therapy Tx Note - Treatment Note Physical Therapy Tx Note: Detail (The patient returned for Orthopedic physcian appt. The patient refused PT due to increased R shoulder pain and fatigue. New R Shoulder protocol received and will initiate tomorrow. Patient is to continue with NWB on L LE.) Physical Therapy Problem List: Detail (1) Assistance with bed mobility and transfers 2) Pain in L LE and immobilization R UE and L LE 3) Nonambulatory) Physical Therapy Goals: 1) The patient will be independent with all bed mobility ( Goal Met). 2) The patient will be independent with all transfers, maintaining NWB status (Goal met). 3) The patient will be independent with wheelchair mobility 200 feet plus , community distances (updated goal). 4) The patient will increase L knee AROM by 5 to 10 degrees to increase ability to complete ADL's (updated goal) Physical Therapy Plan: PT 1-2 times a day M-F for wheelchair moblity, LE strengthening and L knee AROM exercises; as of 06/23/18, passive pendulum exercises to R shoulder.
[2018-07-05] MEDS: ATORVASTATIN 20 MG TABLET PO SCH (20:17)
[2018-07-06] MEDS: IPRATROPIUM INH SCH ×5 (05:59→22:01)
[2018-07-06] MEDS: XOPENEX PUFF SCH ×5 (06:03→22:02)
[2018-07-06] MEDS: LEVOTHYROXINE SOD 112 MCG TAB PO SCH (06:16)
[2018-07-06] MEDS: PANTOPRAZOLE SODIUM 40 MG TABLET PO SCH (06:16)
[2018-07-06] MEDS: OXYCODONE/APAP 10MG-325MG TABLET PO PRN ×3 (06:17→18:51)
[2018-07-06] MEDS: TRAMADOL HCL 50 MG TABLET PO PRN ×2 (09:10→22:34)
--- NOTE | 2018-07-06 10:51 | Physical Therapy Tx Note ---
Physical Therapy Tx Note - Treatment Note Tolerated: Good Total Time Spent With Patient: 25 Physical Therapy Tx Note: Detail (The patient was sitting on edge of bed without knee brace. The patient stated she felt ready to go home and has been transferring independently without nursing staff and going to the bathroom. The patient stated she could put knee brace on by herself and did not feel the need to practice it. The patient's LE strengthening program was reviewed and the patient was issued red T-band for hip abduction. The patient completed the following exercises from orthopedic physician's protocol for R shoulder: submaximal isometrics in flexion, abduction, ER and IR x 5 reps. Patient appropriately used light resistance. Rhythmic stabilization and IR and ER were completed for 30 seconds. The patient complained of muscular fatigue with exercise. Precautions for both surgical shoulder procedures were reviewed and the patient indicated good understanding. OT is to complete ROM protocol this pm.) Physical Therapy Problem List: Detail (1) Assistance with bed mobility and transfers 2) Pain in L LE and immobilization R UE and L LE 3) Nonambulatory) Physical Therapy Goals: 1) The patient will be independent with all bed mobility ( Goal Met). 2) The patient will be independent with all transfers, maintaining NWB status (Goal met). 3) The patient will be independent with wheelchair mobility 200 feet plus , community distances (updated goal). 4) The patient will increase L knee AROM by 5 to 10 degrees to increase ability to complete ADL's (updated goal) Physical Therapy Plan: PT 1-2 times a day M-F for wheelchair moblity, LE strengthening and L knee AROM exercises; as of 06/23/18, passive pendulum exercises to R shoulder.
[2018-07-06] MEDS: ENOXAPARIN 40 MG/0.4 ML SYR SQ SCH (10:59)
[2018-07-06] MEDS: BACITRACIN 14 GM TUBE TOP SCH ×2 (11:00→22:00)
[2018-07-06] MEDS: HYDROCORTISONE 1% CREAM 28.35 GM TUBE TOP SCH ×2 (11:00→22:00)
[2018-07-06] MEDS: DOCUSATE SODIUM 100 MG CAPSULE PO SCH ×2 (11:00→22:35)
[2018-07-06] MEDS: HYDROCHLOROTHIAZIDE 25 MG TABLET PO SCH (11:00)
[2018-07-06] MEDS: LISINOPRIL 20 MG TABLET PO SCH (11:00)
[2018-07-06] MEDS: CLOTRIMAZOLE/BETAMET 15 GM TUBE TOP SCH ×3 (11:00→22:00)
--- NOTE | 2018-07-06 14:16 | Occupational Therapy Tx Note ---
Occupational Therapy Tx Note - Treatment Note Tolerated: Good Total Time Spent With Patient: 40 (ther ex) Occupational Therapy Treatment Note: Detail (S: Pt ready for OT. She is excited about returning home. O: Pt transported to OT gym via wheelchair. Doffed sling Indly. Reviewed protocol with patient and she verbalized understanding. Pt completed 4 min of gentle passive pulleys for right shoulder flexion and she was able to achieve 62 degrees flexion. Pt transferred to mat table and to supine Indly. She completed 5 reps of cane exercises with light assist at elbow to ensure passive motion only, shoulder flexion. AROM x 10 reps for right elbow flexion/extension. Passive ROM x 5 reps each for ER in scapular plane to 10 degrees, IR in scapular plane to 25 degrees, and shoulder flexion to 85 degrees with cues for relaxation techniques and breathing. Reviewed need to continue with pendulums and elbow, forearm, wrist and hand AROM - she verbalized learning. Pt transported back to room via wheelchair. A : Pt reports pain level 5/10 after exercises. She reports less pain with PROM completed by therapist vs. pulleys and cane exercises.) Occupational Therapy Problem List: Detail (1. Decreased Ind with dressing tasks. 2. Decreased Ind with showering. 3. Decreased Ind with functional mobility needed for safe and Ind self cares. 4. Decreased Ind with right UE AROM exercises needed to maintain motion in unaffected joints.) Occupational Therapy Goals: 1. Pt will be Ind with total body dressing using modified techniques including LE brace and UE sling. 2. Pt will be Ind with total body showering in sitting. 3. Pt will be Ind with bed mobility and transfers needed for self care activities. 4. Pt will be Ind with right elbow , wrist and hand AROM exercises. Prognosis: Good Occupational Therapy Plan: OT 2-4 days per week to address self cares, functional mobility and UE function to allow safe and Ind return home.
--- NOTE | 2018-07-06 17:41 | Discharge Summary ---
Providers Discharge Summary Date: 07/06/18 Date of admission: 05/29/18 14:11 Expected Date of Discharge: 07/07/18 Attending physician: Julian Davis Primary care physician: Julian Davis Consults: Consult Orders 05/29/18 15:10 Consult - Case Management Now Comment: Reason For Exam: discharge needs Physical Exam - Vital Signs Vital Signs: Vital Signs - Last 24 Hrs Temp Pulse Pulse Resp BP Pulse Ox 07/06/18 14:04 81 16 95 07/06/18 09:59 74 16 96 07/06/18 08:00 98.4 F 84 18 106/78 96 07/06/18 06:05 82 16 98 07/05/18 21:58 80 16 96 07/05/18 20:00 98.1 F 76 20 106/58 97 07/05/18 17:55 81 18 95 - General General Appearance: Alert, Oriented x3, Cooperative Limitations: Physical limitation (due to LLE fracture) - Head Head exam: Atraumatic, Normocephalic, Normal inspection - Eye Eye exam: Normal appearance Pupils: Normal accommodation - ENT ENT exam: Mucous membranes moist Ear exam: Normal external inspection Mouth exam: Normal external inspection - Neck Neck exam: Normal inspection - Respiratory Respiratory exam: Decreased breath sounds - Cardiovascular Cardiovascular Exam: Regular rate, Normal rhythm, Normal heart sounds Peripheral Pulses: 1+: Dorsalis Pedis (R), Dorsalis Pedis (L), 2+: Radial (R), Radial (L) - GI/Abdominal GI/Abdominal exam: Soft, Normal bowel sounds. negative: Tenderness - Rectal Rectal exam: Deferred - exam: Deferred - Extremities Extremities exam: Calf tenderness (LLE), Normal capillary refill, Pedal edema ( LLE) - Back Back exam: Reports: Normal inspection - Neurological Neurological exam: Abnormal gait, Oriented X3 - Psychiatric Psychiatric exam: Normal affect, Normal mood Hospitalization - Hospitalization Admission Diagnosis: left tibial plateau fracture. right shoulder fracture - Problem List (1) Shoulder dislocation Current Visit: No Status: Acute Discharge Diagnosis: Encounter type: initial encounter Laterality: right Qualified Code(s): S43.004A - Unspecified dislocation of right shoulder joint, initial encounter Base Code: S43.006A - UNSP DISLOCATION OF UNSPECIFIED SHOULDER JOINT, INIT ENCNTR Comment: 05/30/18: Right shoulder dislocation with glenoid shoulder fracture. -NWB, right arm sling -PT/OT -[place] 7.5/325mg q6h prn pain (2) Rotator cuff disorder Current Visit: Yes Status: Acute Base Code: M67.919 - UNSP DISORDER OF SYNOVIUM AND TENDON, UNSPECIFIED SHOULDER - Disposition home - Hospitalization Course Disposition: Home, Self-Care Reason For Discharge/Transfer: Medical Stability Hospital Course: paatient gradually improved and had outpatient surgery on her right shoulder and was non weight bearing on her left knee Procedures: Imaging and X-Rays 06/01/18 12:57 CHEST 2 VIEWS [RAD] Stat Abnormal Labs: Abnormal Lab Results 05/31/18 05/31/18 06/28/18 Range/Units 06:32 06:32 09:01 RBC 3.27 L (3.80-5.40) M/uL Hgb 9.4 L (11.6-16.0) gm/dl Hct 30.3 L (35.0-47.0) % MCHC 31.0 L (32-36) g/dl Lymphocytes % 14.2 L (16-45) % Monocytes % 9.7 H (0-9) % Potassium 4.8 H (3.4-4.5) mmol/L Carbon Dioxide 30.0 H (22-29) mmol/L BUN 26 H (8-23) mg/dL Urine Nitrite Positive H (NEGATIVE) Ur Leukocyte Esterase Large H (NEGATIVE) Condition at Discharge: (1) Good Discharge Diagnosis: decondition resolved. rotator cuff injury right with sugery. left tibial fracture with a brace. hypertension. hypothyroidism. hypercholesterolemia Discharge Medications - Discharge Medications Prescriptions: Cyclobenzaprine HCl [Flexeril] 5 mg PO TID PRN #20 tablet PRN Reason: Muscle Spasms Oxycodone HCl/Acetaminophen [Percocet 10mg/325mg] 1 each PO Q4H PRN #10 tablet PRN Reason: Analgesia Tramadol HCl [Ultram] 50 mg PO Q6H PRN #10 tablet PRN Reason: Pain - Moderate (5-7) Home Medications: Ambulatory Orders Acetaminophen 1,000 mg PO Q4-6HR tab 03/12/16 [Last Taken 1 Day Ago ~05/25/18] Aspirin 81 mg PO QD tab.chew 03/12/16 [Last Taken 1 Day Ago ~05/25/18] Atorvastatin Calcium [Lipitor] 20 mg PO QHS tab 03/12/16 [Last Taken 1 Day Ago ~05/25/18] Calcium Carbonate 1,200 mg PO DAILY tab 03/12/16 [Last Taken 1 Day Ago ~] Cholecalciferol (Vitamin D3) [Vitamin D3] 1,000 unit PO DAILY cap 03/12/16 [ Last Taken 1 Day Ago ~05/25/18] Ginkgo Biloba [place] Extract [Ginkgo] 120 mg PO DAILY tab 03/12/16 [Last Taken 1 Day Ago ~05/25/18] Ibuprofen [Motrin] 600 mg PO Q6H tab 03/12/16 [Last Taken 1 Day Ago ~05/25/18] Levalbuterol Tartrate [Xopenex Hfa] 45 mcg IH Q4H puff 03/12/16 [Last Taken 1 Day Ago ~05/25/18] Levothyroxine Sodium [Synthroid] 112 mcg PO QD tab 03/12/16 [Last Taken 1 Day Ago ~05/25/18] Lisinopril/Hydrochlorothiazide [Lisinopril-Hctz 20-25 mg Tab] 1 tab PO QD tab 03/12/16 [Last Taken 1 Day Ago ~05/25/18] Milk Thistle 1,000 mg PO DAILY cap 03/12/16 [Last Taken 1 Day Ago ~05/25/18] [place]-3/Dha/Epa/Fish Oil [[place] 3 500 Softgel] 1,200 mg PO DAILY cap 03/12/16 [ Last Taken 1 Day Ago ~05/25/18] Omeprazole 20 mg PO QD cap 03/12/16 [Last Taken 1 Day Ago ~05/25/18] Ubidecarenone [Co Q-10] 10 mg PO DAILY cap 03/12/16 [Last Taken 1 Day Ago ~02/07] Glucosa Brown 2Kcl/Chondroitin Brown [Glucosamine-Chondroitin Cap] 1 each PO BID 05/29 [Last Taken Unknown] Acetaminophen [Tylenol 500Mg Tab] 500 mg PO Q6H PRN tablet 07/06/18 [Last Taken Unknown] Cyclobenzaprine HCl [Flexeril] 5 mg PO TID PRN #20 tablet 07/06/18 [Last Taken Unknown] Docusate Sodium [Colace] 100 mg PO BID cap 07/06/18 [Last Taken Unknown] Oxycodone HCl/Acetaminophen [Percocet 10mg/325mg] 1 each PO Q4H PRN #10 tablet 07/06/18 [Last Taken Unknown] Tramadol HCl [Ultram] 50 mg PO Q6H PRN #10 tablet 07/06/18 [Last Taken Unknown] Discharge Plan - Discharge Instructions Activity at Discharge: Increase Activity as Tolerated Diet at Discharge: Low Salt Diet Additional Instructions: Dr. Faustin surgery follow up appointment 06/29/18 at 10:30AM [address], [facility] [address]. Quality Measures - Quality Measures Quality Measures: Advance Directives, Documentation of Current Medications in Medical Record, Elder Maltreatment Screen and Follow-Up Plan, Screening for High Blood Pressure and F/U Documented - Current Medications Quality Measure: Measure #130: Documentation of Current Medications Documentation of Current Medications: <Current Medications Documented/Reviewed> [G8417] - Blood Pressure Screening Quality Measure: Screening for High Blood Pressure and Follow-Up Documented Does Patient Have Any of the Following: Active Dx of HTN Blood Pressure Classification: Pre-Hypertensive BP Reading Systolic Measurement: 136 Diastolic Measurement: 70 Screening for High Blood Pressure: Patient Exclusion, Hx of HTN [G9744] Pre-Hypertensive Follow-up Interventions: Referral to alternative/primary care provider. - Advance Directives Quality Measure: Measure #47: Care Plan Advance Directives Established: Yes Advance Directives Information Provided To Patient: No Advance Directives on File: No Living Will: No Power of Machine Folder: No Advance Care Planning: <Care Plan/Decision Maker Documented; Discussed & Documented> [[id number]] - Elder Abuse Suspicion Index Screening: Elder Abuse Suspicion Index Screening Rely on people for bathing, dressing, shopping, banking, etc: Yes Prevented from getting food, clothes, medication, etc: No Made to feel shamed or threatened by someone: No Forced to sign papers or use money against will: No Poor eye contact, withdrawn, malnourished, cuts or bruises: No Screening Result: Negative result EASI Reference Information: Harshil PEREYRA, Jackie C, Pablo D, Ginny Vivar.Development and validation of a tool to assist physicians identification of elder abuse: The Elder Abuse Suspicion Index (EASI ). Journal of Elder Abuse and Neglect, 2008; 20 (3): 276-300. - Elder Maltreatment Screen Quality Measures: Elder Maltreatment Screen and Follow-Up Plan Elder Maltreatment Screen: <Negative, No Follow-Up Plan Required> [G8734]
[2018-07-06] MEDS: ATORVASTATIN 20 MG TABLET PO SCH (20:25)
[2018-07-06] MEDS: CYCLOBENZAPRINE 10MG TABLET PO PRN (22:34)
[2018-07-07] MEDS: OXYCODONE/APAP 10MG-325MG TABLET PO PRN ×2 (03:12→09:54)
[2018-07-07] MEDS: IPRATROPIUM INH SCH ×3 (06:00→14:15)
[2018-07-07] MEDS: XOPENEX PUFF SCH ×3 (06:01→14:15)
[2018-07-07] MEDS: LEVOTHYROXINE SOD 112 MCG TAB PO SCH (06:31)
[2018-07-07] MEDS: PANTOPRAZOLE SODIUM 40 MG TABLET PO SCH (06:31)
[2018-07-07] MEDS: ENOXAPARIN 40 MG/0.4 ML SYR SQ SCH (10:33)
[2018-07-07] MEDS: HYDROCHLOROTHIAZIDE 25 MG TABLET PO SCH (10:33)
[2018-07-07] MEDS: LISINOPRIL 20 MG TABLET PO SCH (10:33)
[2018-07-07] MEDS: DOCUSATE SODIUM 100 MG CAPSULE PO SCH (10:33)
[2018-07-07] MEDS: HYDROCORTISONE 1% CREAM 28.35 GM TUBE TOP SCH (10:34)
[2018-07-07] MEDS: BACITRACIN 14 GM TUBE TOP SCH (10:34)
[2018-07-07] MEDS: CLOTRIMAZOLE/BETAMET 15 GM TUBE TOP SCH (10:34)
[2018-07-07] MEDS: TRAMADOL HCL 50 MG TABLET PO PRN (14:19)
--- NOTE | 2018-07-07 14:56 | Occupational Therapy Tx Note ---
Occupational Therapy Tx Note - Treatment Note Tolerated: Good Total Time Spent With Patient: 50 (ther ex) Occupational Therapy Treatment Note: Detail (S: Pt transported to rehab gym. Reports some muscle soreness in upper arm today. O: Passive pulleys for right shoulder flexion x 3 minutes. PROM to right shoulder flexion in supine x 5 reps with prolonged hold. Able to achieve 90 degrees flexion with minimal discomfort passively. Cane exercises x 5 reps for right shoulder flexion AAROM in supine. Ball exercise on table in sitting for shoulder flexion AAROM to approx. 75 degrees. Table slide activity x 5 reps for shoulder flexion AAROM. Pendulums x 10 reps each right UE. Provided pt with written HEP per protocol and pt demonstrates learning. A: Pt able to achieve 90 degrees right shoulder flexion passively without significant pain. Ind with HEP.) Occupational Therapy Problem List: Detail (1. Decreased Ind with dressing tasks. 2. Decreased Ind with showering. 3. Decreased Ind with functional mobility needed for safe and Ind self cares. 4. Decreased Ind with right UE AROM exercises needed to maintain motion in unaffected joints.) Occupational Therapy Goals: 1. Pt will be Ind with total body dressing using modified techniques including LE brace and UE sling. 2. Pt will be Ind with total body showering in sitting. 3. Pt will be Ind with bed mobility and transfers needed for self care activities. 4. Pt will be Ind with right elbow , wrist and hand AROM exercises. Prognosis: Good Occupational Therapy Plan: OT 2-4 days per week to address self cares, functional mobility and UE function to allow safe and Ind return home.
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
== END 2018-07-07 15:49 | disposition home or self-care (01) | DRG 563 ==
LOC: MEDSURG 14:11
PROVIDERS: ADMIT Internal Medicine; ATTEND Emergency Medicine
DX: S82.142A Displaced bicondylar fracture of left tibia, initial encounter for closed fracture (principal); S42.91XA Fracture of right shoulder girdle, part unspecified, initial encounter for closed fracture; M67.919 Unspecified disorder of synovium and tendon, unspecified shoulder; I10 Essential (primary) hypertension; E03.9 Hypothyroidism, unspecified; J44.9 Chronic obstructive pulmonary disease, unspecified; I73.9 Peripheral vascular disease, unspecified; M81.0 Age-related osteoporosis without current pathological fracture; E78.00 Pure hypercholesterolemia, unspecified
CPT/HCPCS: 71046; 80048; 81001; 82310; 85025; 94010; 94640; 94760; 94761; 97110; 97530; 97535; 99308; 99309; J1650

== ENCOUNTER 2019-03-28 09:27 | Day surgery (SDC) | payer MEDICARE, MEDICAID ==
[2019-03-28] MEDS ORDERED: LIDOCAINE 2% MDV (20MG/ML) 20ML VIAL IV ONE (09:28)
[2019-03-28] MEDS ORDERED: FENTANYL PF 100MCG/2ML VIAL IV ONE (09:28)
[2019-03-28] MEDS ORDERED: PROPOFOL 10 MG/ML VIAL IV ONE (09:28)
--- NOTE | 2019-03-29 08:50 | Operative Note ---
OPERATION: ESOPHAGOGASTRODUODENOSCOPY with multiple biopsies. 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 The patient's initial endoscopy demonstrated focal intestinal metaplasia. However, recheck a year later failed to demonstrate the same. She does have a hiatal hernia and suffers with gastroesophageal reflux with pyrosis and occasional early satiety. Upper endoscopy is repeated at this time for reevaluation after 3 years. ANESTHESIA: Intravenous sedation was administered by the department of anesthesiology and included Diprivan titrated to effect. PROCEDURE: Following informed consent from this alert individual, including a discussion of the risks and benefits of the procedure and an opportunity for the patient to ask questions, the patient was in the left lateral decubitus position. The Olympus [id number] video endoscope was inserted into the esophagus without resistance. The proximal esophagus had a normal appearance with normal folds and distensibility. The mid esophagus likewise was free from changes. The squamocolumnar junction was slightly irregular and for this reason, multiple biopsies were taken. There was a small 2 cm hiatal hernia noted which was free from other mucosal changes. The subdiaphragmatic stomach was entered and found to be unremarkable. The pylorus was patent. The duodenal bulb, sweep and descending duodenum were examined in a serial fashion and found to be normal. The endoscope was then withdrawn back into the body of the stomach. Retroflexion accomplished following air insufflation failed to demonstrate additional changes. The endoscope was straightened and withdrawn after biopsies were obtained from the GE junction. The endoscope was withdrawn back through an otherwise normal esophagus and removed from the patient. The patient tolerated the procedure well and was returned to the recovery area in stable condition. IMPRESSION: 1. Small hiatal hernia. 2. Slightly irregular Z line. Biopsies taken. RECOMMENDATION: The patient will continue with omeprazole once daily which has controlled her symptoms well. Further recommendations will be forthcoming pending results of pathology obtained today. As always, thank you for allowing me to participate in the care of your patient. CC: DO HERLINDA Zapata
== END 2019-03-28 11:25 | disposition home or self-care (01) ==
LOC: HOP 09:27
PROVIDERS: ATTEND Internal Medicine Gastroenterology
DX: K21.9 Gastro-esophageal reflux disease without esophagitis (principal); K44.9 Diaphragmatic hernia without obstruction or gangrene; R12 Heartburn; K31.89 Other diseases of stomach and duodenum; I10 Essential (primary) hypertension; E78.00 Pure hypercholesterolemia, unspecified; J44.9 Chronic obstructive pulmonary disease, unspecified; E03.9 Hypothyroidism, unspecified; M19.90 Unspecified osteoarthritis, unspecified site
CPT/HCPCS: 29240; 97110